=== PATIENT | female | born 1990 | race Caucasian/White ===

== ENCOUNTER → 2016-09-27 | Outpatient (REF) | payer OTHER ==
[~2016-09-27] MED LIST: ESCI10TA2 PO; HYDR25T PO; TRAZO50TA PO; [UNRECOGNIZED DRUG - OTHER] TOP
[2016-09-27 19:36] LABS: BASO % 0.3 % (0.0-1.0); EOS % 0.5 % (0.0-3.0); LARGE UNSTAINED CELL # 0.1 K/mm3 (0.0-0.4); LARGE UNSTAINED CELL % 1.1 % (0.0-4.0); LYMPH # 2.4 K/mm3 (1.5-6.5); LYMPH % 34.7 % (24.0-44.0); MEAN CORPUSCULAR HEMOGLOBIN 35.4 pg (27.0-33.0); MEAN CORPUSCULAR HGB CONC 35.3 g/dl (32.0-36.5); MEAN CORPUSCULAR VOLUME 100.2 fl (80.0-96.0); MONO # 0.2 K/mm3 (0.0-0.8); NEUTROPHILS # 4.2 K/mm3 (1.8-7.7); NEUTROPHILS % 60.3 % (36.0-66.0); PLATELET COUNT, AUTOMATED 191 k/mm3 (150-450); WHITE BLOOD COUNT 6.9 K/mm3 (4.0-10.0)
== END ==
LOC: M SFHCPLAZ 14:12
PROVIDERS: ATTEND Physician Assistant Medical
DX: M79.672 Pain in left foot (principal)

== ENCOUNTER → 2016-09-27 | Outpatient (CLI) | payer OTHER ==
--- NOTE | 2016-09-27 13:11 | REP ---
LEFT FOOT, FOUR VIEWS: There is no evidence of an acute fracture, dislocation or intrinsic bone disease. IMPRESSION: No fracture or dislocation. Signed by Danny Diggs MD 09/27/2016 04:50 P
== END ==
LOC: M RAD 11:13
PROVIDERS: ATTEND Physician Assistant Medical
DX: M79.672 Pain in left foot (principal)

== ENCOUNTER → 2016-11-22 | Outpatient (CLI) | payer OTHER ==
--- NOTE | 2016-11-26 12:12 | SLEEPCENT ---
DATE OF PROCEDURE: 11/22/2016 ORDERED BY: HARSHA Collins Nocturnal polysomnography was performed due to concern for the obstructive sleep apnea syndrome in this patient with a history of nonrestorative sleep and irregular breathing pattern. 8 hours and 34 minutes of data were reviewed. There were 422 minutes of sleep identified. Sleep latency was short at 9 minutes. Rapid eye movement (REM) latency was short at 66 minutes. Sleep architecture was fair with some fragmentation, but 4 REM periods were identified. The patient's EKG showed a sinus rhythm with an average heart rate of 75 beats per minute. Rate variability was seen surrounding respiratory events. Rate ranged 60-100 beats per minute. EEG showed essentially normal waveforms for awake and sleep stages. There were only 26 respiratory events identified of 10 seconds in duration or greater for an apnea hypopnea index of 3.7. The events seen were more exclusive to stage REM. No significant association with body posture was identified. There was some snoring noted over the course of the study. Arousals from respiratory events in total occurred only 2.3 times per hour. There was some minor limb activity. Limb movement arousal index of 3.7. Oxygen saturations remained 90% plus throughout the test. IMPRESSION: Normal nocturnal polysomnography with snoring.
== END ==
LOC: M SLEEP 19:57
PROVIDERS: ATTEND Nurse Practitioner Adult Health
DX: G47.30 Sleep apnea, unspecified (principal)

== ENCOUNTER → 2016-12-26 | Outpatient (REF) | payer OTHER ==
[~2016-12-26] MED LIST changes: +CLEO300C2 PO; +FAMO1TAB25 PO; +FAMO40TA3 PO; +HYDR-3363 PO; -HYDR25T PO; +PHEN1SUP7 PO
[2016-12-26 11:56] LABS: BASO % 0.4 % (0.0-1.0); EOS # 0.1 K/mm3 (0.0-0.50); EOS % 1.9 % (0.0-3.0); LARGE UNSTAINED CELL # 0.1 K/mm3 (0.0-0.4); LARGE UNSTAINED CELL % 1.5 % (0.0-4.0); LYMPH # 1.9 K/mm3 (1.5-6.5); LYMPH % 33.9 % (24.0-44.0); MEAN CORPUSCULAR HEMOGLOBIN 34.2 pg (27.0-33.0); MEAN CORPUSCULAR HGB CONC 35.4 g/dl (32.0-36.5); MEAN CORPUSCULAR VOLUME 96.5 fl (80.0-96.0); MONO # 0.2 K/mm3 (0.0-0.8); MONO % 4.2 % (0.0-5.0); NEUTROPHILS # 3.1 K/mm3 (1.8-7.7); NEUTROPHILS % 58.1 % (36.0-66.0); PLATELET COUNT, AUTOMATED 153 k/mm3 (150-450); RED CELL DISTRIBUTION WIDTH 12.7 % (11.5-14.5); WHITE BLOOD COUNT 5.4 K/mm3 (4.0-10.0)
[2016-12-26 12:13] LABS: ANION GAP 10 MEQ/L (8-16); BLOOD UREA NITROGEN 10 MG/DL (7-18); CALCIUM LEVEL 8.9 MG/DL (8.5-10.1); CARBON DIOXIDE LEVEL 30 MEQ/L (21-32); CHLORIDE LEVEL 106 MEQ/L (98-107); CREATININE FOR GFR 0.56 MG/DL (0.55-1.02); GLOMERULAR FILTRATION RATE > 60.0 (>60); GLUCOSE, FASTING 73 MG/DL (70-105); POTASSIUM SERUM 3.5 MEQ/L (3.5-5.1); SODIUM LEVEL 146 MEQ/L (136-145)
== END ==
LOC: M SFHCPLAZ 09:26
PROVIDERS: ATTEND Physician Assistant Medical
DX: E66.9 Obesity, unspecified (principal)

== ENCOUNTER → 2016-12-27 | Outpatient (CLI) | payer OTHER ==
[2016-12-27 20:11] LABS: ALBUMIN 3.7 GM/DL (3.2-5.2); ALBUMIN/GLOBULIN RATIO 1.48 (1.00-1.93); ALKALINE PHOSPHATASE 65 U/L (45-117); ALT/SGPT 26 U/L (12-78); ANION GAP 9 MEQ/L (8-16); AST/SGOT 13 U/L (15-37); BILIRUBIN,TOTAL 0.4 MG/DL (0.2-1.0); BLOOD UREA NITROGEN 9 MG/DL (7-18); CALCIUM LEVEL 8.8 MG/DL (8.5-10.1); CARBON DIOXIDE LEVEL 29 MEQ/L (21-32); CHLORIDE LEVEL 100 MEQ/L (98-107); CREATININE FOR GFR 0.63 MG/DL (0.55-1.02); FERRITIN 154 NG/ML (8-252); GLOMERULAR FILTRATION RATE > 60.0 (>60); GLUCOSE, FASTING 69 MG/DL (70-105); MAGNESIUM LEVEL 2.3 MG/DL (1.8-2.4); PERCENT SATURATION 54.7 % (13.2-37.4); PHOSPHORUS LEVEL 3.4 MG/DL (2.5-4.9); POTASSIUM SERUM 3.4 MEQ/L (3.5-5.1); SODIUM LEVEL 138 MEQ/L (136-145); TOTAL IRON BINDING CAPACITY 192 UG/DL (250-450); TOTAL PROTEIN 6.2 GM/DL (6.4-8.2)
[2016-12-27 20:14] LABS: BASO % 0.4 % (0.0-1.0); EOS # 0.1 K/mm3 (0.0-0.50); EOS % 1.2 % (0.0-3.0); LARGE UNSTAINED CELL # 0.1 K/mm3 (0.0-0.4); LYMPH # 1.8 K/mm3 (1.5-6.5); LYMPH % 27.8 % (24.0-44.0); MEAN CORPUSCULAR HEMOGLOBIN 33.2 pg (27.0-33.0); MEAN CORPUSCULAR HGB CONC 34.3 g/dl (32.0-36.5); MEAN CORPUSCULAR VOLUME 96.7 fl (80.0-96.0); MONO # 0.2 K/mm3 (0.0-0.8); MONO % 3.7 % (0.0-5.0); NEUTROPHILS # 4.1 K/mm3 (1.8-7.7); NEUTROPHILS % 65.9 % (36.0-66.0); PLATELET COUNT, AUTOMATED 161 k/mm3 (150-450); RED CELL DISTRIBUTION WIDTH 12.9 % (11.5-14.5); WHITE BLOOD COUNT 6.2 K/mm3 (4.0-10.0)
[2016-12-27 20:34] LABS: VITAMIN B12 LEVEL > 2000 PG/ML (247-911)
[2016-12-28 10:56] LABS: PRETREATED FOLATE FOR RBCFOL 9.6 NG/ML
== END ==
LOC: M WUC 17:23
PROVIDERS: ATTEND Surgery
DX: K91.2 Postsurgical malabsorption, not elsewhere classified (principal); Z98.84 Bariatric surgery status

== ENCOUNTER 2016-12-28 10:35 | Emergency (ER) | payer OTHER ==
[~2016-12-28] VITALS: Ht 157.5 cm; Wt 91.4 kg
[~2016-12-28 10:35] MED LIST changes: -CLEO300C2 PO; -FAMO1TAB25 PO; -FAMO40TA3 PO; -PHEN1SUP7 PO
[2016-12-28] MEDS ORDERED: FAMO1TAB25 PO (10:58)
[2016-12-28] MEDS ORDERED: FAMO40TA3 PO (10:58)
[2016-12-28] MEDS ORDERED: PROMETHAZINE INJ 25 MG/ML VIAL (J2550) IV ONE (11:15)
[2016-12-28] MEDS ORDERED: NS 1,000 ML IV ONE (11:15)
[2016-12-28] MEDS ORDERED: CLEO300C2 PO (12:58)
[2016-12-28] MEDS ORDERED: PHEN1SUP7 PO (12:59)
[2016-12-28 13:05] VITALS: BP 111/61
== END 2016-12-28 13:14 | disposition home or self-care (01) ==
LOC: M ED 10:35
DX: R11.2 Nausea with vomiting, unspecified (principal); E86.0 Dehydration; J02.0 Streptococcal pharyngitis; Z98.84 Bariatric surgery status

== ENCOUNTER → 2017-06-05 | Outpatient (CLI) | payer OTHER ==
[2017-06-05 16:27] LABS: BASO % 0.4 % (0.0-1.0); EOS % 0.4 % (0.0-3.0); HEMATOCRIT 38.8 % (36.0-47.0); HEMOGLOBIN 13.3 g/dl (12.0-16.0); IMMATURE GRANULOCYTE % 0.2 % (0-0); LYMPH # 1.4 10^3/uL (1.5-6.5); LYMPH % 28.5 % (24.0-44.0); MEAN CORPUSCULAR HGB CONC 34.3 g/dl (32.0-36.5); MEAN CORPUSCULAR VOLUME 99.2 fl (80.0-96.0); MONO # 0.3 10^3/uL (0.0-0.8); MONO % 6.2 % (0.0-5.0); NEUTROPHILS # 3.2 10^3/uL (1.8-7.7); NEUTROPHILS % 64.3 % (36.0-66.0); PLATELET COUNT, AUTOMATED 174 10^3/uL (150-450); RED BLOOD COUNT 3.91 10^6/uL (4.00-5.40); RED CELL DISTRIBUTION WIDTH 12.5 % (11.5-14.5)
[2017-06-05 16:29] LABS: HEMATOCRIT 38.8 % (36.0-47.0)
[2017-06-05 17:14] LABS: ESTIMATED AVERAGE GLUCOSE 77 MG/DL (60-110); HEMOGLOBIN A1c 4.3 %
[2017-06-05 17:16] LABS: TOTAL 25(OH) VITAMIN D 39.8 NG/ML (30.0-100.0); VITAMIN B12 LEVEL 466 PG/ML (247-911)
[2017-06-05 17:25] LABS: ALBUMIN 3.5 GM/DL (3.2-5.2); ALKALINE PHOSPHATASE 95 U/L (45-117); ALT/SGPT 25 U/L (12-78); ANION GAP 5 MEQ/L (8-16); AST/SGOT 17 U/L (7-37); BILIRUBIN,TOTAL 0.3 MG/DL (0.2-1.0); BLOOD UREA NITROGEN 12 MG/DL (7-18); CALCIUM LEVEL 8.3 MG/DL (8.5-10.1); CARBON DIOXIDE LEVEL 30 MEQ/L (21-32); CHLORIDE LEVEL 109 MEQ/L (98-107); CREATININE FOR GFR 0.64 MG/DL (0.55-1.02); FERRITIN 100 NG/ML (8-252); GLOMERULAR FILTRATION RATE > 60.0 (>60); GLUCOSE, FASTING 79 MG/DL (70-105); IRON (FE) 62 UG/DL (50-170); MAGNESIUM LEVEL 2.2 MG/DL (1.8-2.4); PERCENT SATURATION 27.1 % (13.2-45.0); PHOSPHORUS LEVEL 2.8 MG/DL (2.5-4.9); POTASSIUM SERUM 3.8 MEQ/L (3.5-5.1); SODIUM LEVEL 144 MEQ/L (136-145); TOTAL IRON BINDING CAPACITY 229 UG/DL (250-450); TOTAL PROTEIN 6.2 GM/DL (6.4-8.2)
[2017-06-07 11:47] LABS: PRETREATED FOLATE FOR RBCFOL 7.2 NG/ML; RBC FOLATE 389.7 NG/ML (280-791)
== END ==
LOC: M LAB 15:42
DX: K91.2 Postsurgical malabsorption, not elsewhere classified (principal)
CPT/HCPCS: 83550

== ENCOUNTER → 2017-10-24 | Outpatient (REF) | payer OTHER ==
[2017-10-24 21:57] LABS: CHLAMYDIA DNA AMPLIFICATION POSITIVE (NEGATIVE); GC DNA AMPLIFICATION NEGATIVE (NEGATIVE)
== END ==
LOC: M SFHCLERA 17:47
DX: R10.9 Unspecified abdominal pain (principal)

== ENCOUNTER → 2018-03-09 | Outpatient (REF) | payer OTHER | LOC: M SFHCLERA 13:33 | DX: R50.9 Fever, unspecified (principal) ==

== ENCOUNTER → 2018-03-09 | Outpatient (CLI) | payer OTHER | LOC: M LRY 13:40 | DX: R50.9 Fever, unspecified (principal); R05 Cough | CPT/HCPCS: 71046 ==

== ENCOUNTER → 2018-04-23 | Outpatient (CLI) | payer OTHER | LOC: M OUTALCOH 08:06 | DX: Z13.89 Encounter for screening for other disorder (principal); F10.20 Alcohol dependence, uncomplicated ==

== ENCOUNTER 2018-05-01 09:04 | Outpatient (RCR) | payer OTHER | END 2018-05-02 | LOC: M OUTALCOH 09:04 | DX: F10.20 Alcohol dependence, uncomplicated (principal) ==

== ENCOUNTER → 2018-06-02 | Outpatient (RCR) | payer OTHER ==
[~2018-06-02] MED LIST changes: +CLEO300C2 PO; +FAMO1TAB25 PO; +FAMO40TA3 PO; +PHEN1SUP7 PO
== END ==
LOC: M OUTALCOH 05-06 09:00
PROVIDERS: ATTEND Psychiatry & Neurology Psychiatry
DX: F10.20 Alcohol dependence, uncomplicated (principal)

== ENCOUNTER 2018-06-30 08:45 | Outpatient (RCR) | payer OTHER | END 2018-07-03 | LOC: M OUTALCOH 08:45 | PROVIDERS: ATTEND Psychiatry & Neurology Psychiatry | DX: F10.20 Alcohol dependence, uncomplicated (principal) ==

== ENCOUNTER 2018-07-23 13:00 | Outpatient (RCR) | payer OTHER | END 2018-07-31 | LOC: M OUTALCOH 13:00 | PROVIDERS: ATTEND Psychiatry & Neurology Psychiatry | DX: F10.20 Alcohol dependence, uncomplicated (principal) ==

== ENCOUNTER 2018-08-29 16:00 | Outpatient (RCR) | payer OTHER | END 2018-08-31 | LOC: M OUTALCOH 16:00 | PROVIDERS: ATTEND Psychiatry & Neurology Psychiatry | DX: F10.20 Alcohol dependence, uncomplicated (principal) ==

== ENCOUNTER 2018-09-25 08:00 | Outpatient (RCR) | payer OTHER | END 2018-09-30 | LOC: M OUTALCOH 08:00 | PROVIDERS: ATTEND Psychiatry & Neurology Psychiatry | DX: F10.20 Alcohol dependence, uncomplicated (principal) ==

== ENCOUNTER → 2018-09-30 | Outpatient (REF) | payer OTHER | LOC: M SFHCLERA 11:30 | PROVIDERS: ATTEND Physician Assistant | DX: J02.9 Acute pharyngitis, unspecified (principal) ==

== ENCOUNTER 2018-10-29 08:55 | Outpatient (RCR) | payer OTHER | END 2018-10-31 | LOC: M OUTALCOH 08:55 | PROVIDERS: ATTEND Psychiatry & Neurology Psychiatry | DX: F10.20 Alcohol dependence, uncomplicated (principal) ==

== ENCOUNTER 2018-11-27 16:00 | Outpatient (RCR) | payer OTHER ==
[~2018-11-27 16:00] MED LIST changes: +TRAZ1TAB10 PO; -TRAZO50TA PO
== END 2018-11-30 ==
LOC: M OUTALCOH 16:00
PROVIDERS: ATTEND Psychiatry & Neurology Psychiatry
DX: F10.20 Alcohol dependence, uncomplicated (principal)

== ENCOUNTER 2018-12-30 10:00 | Outpatient (RCR) | payer OTHER, SELFPAY | END 2018-12-31 | LOC: M OUTALCOH 10:00 | PROVIDERS: ATTEND Psychiatry & Neurology Psychiatry | DX: F10.20 Alcohol dependence, uncomplicated (principal) | CPT/HCPCS: 90834; H0050 ==

== ENCOUNTER 2019-01-28 08:00 | Outpatient (RCR) | payer OTHER | END 2019-01-31 | LOC: M OUTALCOH 08:00 | PROVIDERS: ATTEND Psychiatry & Neurology Psychiatry | DX: F10.20 Alcohol dependence, uncomplicated (principal) ==

== ENCOUNTER 2019-02-25 16:00 | Outpatient (RCR) | payer OTHER | END 2019-03-02 | LOC: M OUTALCOH 16:00 | PROVIDERS: ATTEND Psychiatry & Neurology Psychiatry | DX: F10.20 Alcohol dependence, uncomplicated (principal) ==

== ENCOUNTER 2019-03-27 13:00 | Outpatient (RCR) | payer OTHER | END 2019-04-02 | LOC: M OUTALCOH 13:00 | PROVIDERS: ATTEND Psychiatry & Neurology Psychiatry | DX: F10.20 Alcohol dependence, uncomplicated (principal) ==

== ENCOUNTER 2019-04-27 16:00 | Outpatient (RCR) | payer OTHER | END 2019-05-02 | LOC: M OUTALCOH 16:00 | PROVIDERS: ATTEND Psychiatry & Neurology Psychiatry | DX: F10.20 Alcohol dependence, uncomplicated (principal) ==

== ENCOUNTER → 2019-05-12 | Outpatient (CLI) | payer OTHER ==
[2019-05-12 17:07] LABS: BASO % 0.4 % (0.0-1.0); EOS % 0.4 % (0.0-3.0); HEMATOCRIT 39.2 % (36.0-47.0); HEMOGLOBIN 12.8 g/dl (12.0-15.5); LYMPH # 2.1 10^3/uL (1.5-5.0); LYMPH % 41.7 % (24.0-44.0); MEAN CORPUSCULAR HEMOGLOBIN 32.9 pg (27.0-33.0); MEAN CORPUSCULAR HGB CONC 32.7 g/dl (32.0-36.5); MEAN CORPUSCULAR VOLUME 100.8 fl (80.0-96.0); MONO # 0.3 10^3/uL (0.0-0.8); MONO % 5.1 % (0.0-5.0); NEUTROPHILS # 2.7 10^3/uL (1.5-8.5); NEUTROPHILS % 52.4 % (36.0-66.0); PLATELET COUNT, AUTOMATED 165 10^3/uL (150-450); RED BLOOD COUNT 3.89 10^6/uL (4.00-5.40); WHITE BLOOD COUNT 5.1 10^3/uL (4.0-10.0)
[2019-05-12 17:20] LABS: FREE T4 0.96 NG/DL (0.76-1.46); PROLACTIN 5.7 NG/ML
[2019-05-13 13:23] LABS: HEPATITIS B SURFACE ANTIGEN NEGATIVE (NEGATIVE)
[2019-05-13 13:25] LABS: HEPATITIS C VIRUS ABY INDEX 0.1 INDEX (<0.8); HIV 1&2 SCREEN CENTAUR NEGATIVE (NEGATIVE)
== END ==
LOC: M WUC 11:22
PROVIDERS: ATTEND Nurse Practitioner Women's Health
DX: Z11.3 Encounter for screening for infections with a predominantly sexual mode of transmission (principal); R53.83 Other fatigue; N64.4 Mastodynia

== ENCOUNTER 2019-06-01 13:59 | Outpatient (RCR) | payer OTHER | END 2019-06-02 | LOC: M OUTALCOH 13:59 | PROVIDERS: ATTEND Psychiatry & Neurology Psychiatry | DX: F10.20 Alcohol dependence, uncomplicated (principal) ==

== ENCOUNTER 2019-06-29 16:00 | Outpatient (RCR) | payer OTHER | END 2019-07-03 | LOC: M OUTALCOH 16:00 | PROVIDERS: ATTEND Psychiatry & Neurology Psychiatry | DX: F10.20 Alcohol dependence, uncomplicated (principal) ==

== ENCOUNTER 2019-07-31 09:03 | Outpatient (RCR) | payer OTHER | END 2019-08-01 | LOC: M OUTALCOH 09:03 | PROVIDERS: ATTEND Psychiatry & Neurology Addiction Medicine | DX: F10.20 Alcohol dependence, uncomplicated (principal) ==

== ENCOUNTER 2019-08-14 09:55 | Outpatient (RCR) | payer OTHER | END 2019-09-01 | LOC: M OUTALCOH 09:55 | PROVIDERS: ATTEND Psychiatry & Neurology Addiction Medicine | DX: F10.20 Alcohol dependence, uncomplicated (principal) ==

== ENCOUNTER 2019-09-10 13:47 | Outpatient (RCR) | payer OTHER | END 2019-10-01 | LOC: M OUTALCOH 13:47 | PROVIDERS: ATTEND Psychiatry & Neurology Addiction Medicine | DX: F10.20 Alcohol dependence, uncomplicated (principal) ==

== ENCOUNTER 2019-10-15 16:00 | Outpatient (RCR) | payer OTHER | END 2019-11-01 | LOC: M OUTALCOH 16:00 | PROVIDERS: ATTEND Psychiatry & Neurology Addiction Medicine | DX: F10.20 Alcohol dependence, uncomplicated (principal) ==

== ENCOUNTER → 2019-11-05 | Outpatient (CLI) | payer OTHER | LOC: M LABSMTC 10:10 | PROVIDERS: ATTEND Pediatrics | DX: Z03.818 Encounter for observation for suspected exposure to other biological agents ruled out (principal); Z11.59 Encounter for screening for other viral diseases ==

== ENCOUNTER 2019-11-19 15:31 | Outpatient (RCR) | payer OTHER | END 2019-12-01 | LOC: M OUTALCOH 15:31 | PROVIDERS: ATTEND Psychiatry & Neurology Addiction Medicine | DX: F10.20 Alcohol dependence, uncomplicated (principal) ==

== ENCOUNTER 2019-12-30 10:00 | Outpatient (RCR) | payer OTHER | END 2020-01-01 | LOC: M OUTALCOH 10:00 | PROVIDERS: ATTEND Psychiatry & Neurology Addiction Medicine | DX: F10.20 Alcohol dependence, uncomplicated (principal) ==

== ENCOUNTER 2020-02-04 11:30 | Outpatient (RCR) | payer OTHER | END 2020-03-02 | LOC: M OUTALCOH 11:30 | PROVIDERS: ATTEND Psychiatry & Neurology Addiction Medicine | DX: F10.20 Alcohol dependence, uncomplicated (principal) ==

== ENCOUNTER 2020-03-17 15:48 | Outpatient (RCR) | payer OTHER | END 2020-04-02 | LOC: M OUTALCOH 15:48 | PROVIDERS: ATTEND Psychiatry & Neurology Addiction Medicine | DX: F10.20 Alcohol dependence, uncomplicated (principal) ==

== ENCOUNTER 2020-04-22 14:27 | Outpatient (RCR) | payer OTHER | END 2020-05-02 | LOC: M OUTALCOH 14:27 | PROVIDERS: ATTEND Psychiatry & Neurology Addiction Medicine | DX: F10.20 Alcohol dependence, uncomplicated (principal) ==

== ENCOUNTER → 2020-05-31 | Outpatient (CLI) | payer OTHER ==
[2020-05-31 14:01] LABS: BASO % 0.4 % (0.0-1.0); EOS % 0.8 % (0.0-3.0); HEMATOCRIT 39.3 % (36.0-47.0); HEMOGLOBIN 12.7 g/dl (12.0-15.5); LYMPH # 1.7 10^3/uL (1.5-5.0); MEAN CORPUSCULAR HEMOGLOBIN 32.6 pg (27.0-33.0); MEAN CORPUSCULAR HGB CONC 32.3 g/dl (32.0-36.5); MEAN CORPUSCULAR VOLUME 100.8 fl (80.0-96.0); MONO # 0.3 10^3/uL (0.0-0.8); MONO % 5.9 % (0.0-5.0); NEUTROPHILS # 2.7 10^3/uL (1.5-8.5); NEUTROPHILS % 56.9 % (36.0-66.0); PLATELET COUNT, AUTOMATED 190 10^3/uL (150-450); WHITE BLOOD COUNT 4.7 10^3/uL (4.0-10.0)
== END ==
LOC: M PLALAB 11:02
PROVIDERS: ATTEND Obstetrics & Gynecology
DX: Z91.89 Other specified personal risk factors, not elsewhere classified (principal)

== ENCOUNTER → 2020-05-31 | Outpatient (REF) | payer OTHER ==
[2020-05-31 14:39] LABS: HEMOGLOBIN A1c 4.5 %
[2020-05-31 14:43] LABS: ALBUMIN 3.7 GM/DL (3.2-5.2); ALT/SGPT 25 U/L (12-78); BILIRUBIN,TOTAL 0.6 MG/DL (0.2-1.0); BLOOD UREA NITROGEN 12 MG/DL (7-18); CALCIUM LEVEL 8.6 MG/DL (8.5-10.1); CARBON DIOXIDE LEVEL 30 MEQ/L (21-32); CHLORIDE LEVEL 105 MEQ/L (98-107); CHOLESTEROL LEVEL 166 MG/DL (<200); CHOLESTEROL RISK RATIO 2.338 (<5); CREATININE FOR GFR 0.68 MG/DL (0.55-1.30); FERRITIN 49 NG/ML (8-252); FREE T4 1.18 NG/DL (0.76-1.46); GLOMERULAR FILTRATION RATE > 60.0 (>60); GLUCOSE, FASTING 77 MG/DL (70-100); HDL CHOLESTEROL 71 MG/DL (>40); IRON (FE) 113 UG/DL (50-170); LDL CHOLESTEROL 80 MG/DL (<100); MAGNESIUM LEVEL 2.3 MG/DL (1.8-2.4); NON-HDL-C 95 MG/DL; PHOSPHORUS LEVEL 2.9 MG/DL (2.5-4.9); POTASSIUM SERUM 4.5 MEQ/L (3.5-5.1); SODIUM LEVEL 140 MEQ/L (136-145); TOTAL PROTEIN 6.4 GM/DL (6.4-8.2); TRIGLYCERIDES LEVEL 74 MG/DL (<150)
[2020-05-31 14:44] LABS: TOTAL 25(OH) VITAMIN D 25.4 NG/ML (30.0-100.0); VITAMIN B12 LEVEL 334 PG/ML (247-911)
== END ==
LOC: M SFHCPLAZ 11:01
PROVIDERS: ATTEND Physician Assistant Medical
DX: Z98.890 Other specified postprocedural states (principal); E66.9 Obesity, unspecified; F41.9 Anxiety disorder, unspecified; Z13.220 Encounter for screening for lipoid disorders

== ENCOUNTER 2020-06-29 09:00 | Outpatient (RCR) | payer OTHER ==
[~2020-06-29 09:00] MED LIST changes: +ESCI10TA16 PO; -ESCI10TA2 PO
== END 2020-07-03 ==
LOC: M OUTALCOH 09:00
PROVIDERS: ATTEND Psychiatry & Neurology Psychiatry
DX: F10.20 Alcohol dependence, uncomplicated (principal)

== ENCOUNTER → 2020-07-14 | Outpatient (REF) | payer OTHER ==
[2020-07-14 10:41] LABS: BASO % 0.4 % (0.0-1.0); EOS % 0.8 % (0.0-3.0); HEMATOCRIT 35.5 % (36.0-47.0); HEMOGLOBIN 12.2 g/dl (12.0-15.5); LYMPH # 1.6 10^3/uL (1.5-5.0); LYMPH % 34.3 % (24.0-44.0); MEAN CORPUSCULAR HEMOGLOBIN 33.8 pg (27.0-33.0); MEAN CORPUSCULAR HGB CONC 34.4 g/dl (32.0-36.5); MEAN CORPUSCULAR VOLUME 98.3 fl (80.0-96.0); MONO # 0.2 10^3/uL (0.0-0.8); MONO % 4.4 % (0.0-5.0); NEUTROPHILS # 2.8 10^3/uL (1.5-8.5); NEUTROPHILS % 59.9 % (36.0-66.0); PLATELET COUNT, AUTOMATED 162 10^3/uL (150-450); RED BLOOD COUNT 3.61 10^6/uL (4.00-5.40); WHITE BLOOD COUNT 4.8 10^3/uL (4.0-10.0)
[2020-07-14 11:11] LABS: ALBUMIN 3.4 GM/DL (3.2-5.2); ALT/SGPT 23 U/L (12-78); BILIRUBIN,TOTAL 0.6 MG/DL (0.2-1.0); BLOOD UREA NITROGEN 13 MG/DL (7-18); CALCIUM LEVEL 8.2 MG/DL (8.5-10.1); CARBON DIOXIDE LEVEL 27 MEQ/L (21-32); CHLORIDE LEVEL 109 MEQ/L (98-107); CHOLESTEROL LEVEL 145 MG/DL (<200); CHOLESTEROL RISK RATIO 2.685 (<5); CREATININE FOR GFR 0.68 MG/DL (0.55-1.30); FERRITIN 35 NG/ML (8-252); FREE T4 0.96 NG/DL (0.76-1.46); GLOMERULAR FILTRATION RATE > 60.0 (>60); GLUCOSE, FASTING 75 MG/DL (70-100); HDL CHOLESTEROL 54 MG/DL (>40); IRON (FE) 151 UG/DL (50-170); LDL CHOLESTEROL 83 MG/DL (<100); NON-HDL-C 91 MG/DL; POTASSIUM SERUM 4.1 MEQ/L (3.5-5.1); SODIUM LEVEL 143 MEQ/L (136-145); TOTAL 25(OH) VITAMIN D 31.6 NG/ML (30.0-100.0); TOTAL PROTEIN 5.9 GM/DL (6.4-8.2); TRIGLYCERIDES LEVEL 40 MG/DL (<150); VITAMIN B12 LEVEL 325 PG/ML (247-911)
== END ==
LOC: M SFHCPLAZ 08:43
PROVIDERS: ATTEND Physician Assistant Medical
DX: J45.20 Mild intermittent asthma, uncomplicated (principal); Z13.220 Encounter for screening for lipoid disorders; F41.9 Anxiety disorder, unspecified; Z98.890 Other specified postprocedural states

== ENCOUNTER 2020-07-20 10:00 | Outpatient (RCR) | payer OTHER | END 2020-07-31 | LOC: M OUTALCOH 10:00 | PROVIDERS: ATTEND Psychiatry & Neurology Psychiatry | DX: F12.20 Cannabis dependence, uncomplicated (principal); F10.20 Alcohol dependence, uncomplicated; Z72.0 Tobacco use ==

== ENCOUNTER 2020-08-16 20:43 | Emergency (ER) | payer OTHER ==
[~2020-08-16] VITALS: Ht 157.5 cm; Wt 71.6 kg
[2020-08-16] MEDS ORDERED: LAMO100T3 PO (20:58)
[2020-08-16] MEDS ORDERED: ALBU8.5H INH (20:58)
[2020-08-16] MEDS ORDERED: TRAZ-252 PO (20:58)
[2020-08-16] MEDS ORDERED: BUPR150T5 PO (20:58)
[2020-08-16] MEDS ORDERED: FAMOTIDINE INJ 20MG/2ML VIAL (S0028 PER 1) IVP ONE (22:50)
[2020-08-16] MEDS ORDERED: PANTOPRAZOLE 40MG VIAL (C9113 PER 1) IV ONE (22:50)
[2020-08-16] MEDS ORDERED: ONDANSETRON 4MG/2ML VIAL IV ONE (22:50)
[2020-08-16] MEDS ORDERED: GI COCKTAIL 50ML BTL(HYOSCYAMINE/MAALOX/LIDOCAINE VISCOUS)(1:3:1) PO ONE (22:50)
[2020-08-16] MEDS ORDERED: NS 1,000 ML IV ONE (22:50)
[2020-08-16] MEDS ORDERED: SUCRALFATE 1 GM TAB PO ONE (22:50)
[2020-08-16 23:06] LABS: BASO % 0.4 % (0.0-1.0); EOS # 0.1 10^3/uL (0.0-0.5); HEMATOCRIT 33.7 % (36.0-47.0); HEMOGLOBIN 11.8 g/dl (12.0-15.5); LYMPH # 2.4 10^3/uL (1.5-5.0); LYMPH % 47.4 % (24.0-44.0); MEAN CORPUSCULAR HEMOGLOBIN 33.5 pg (27.0-33.0); MEAN CORPUSCULAR VOLUME 95.7 fl (80.0-96.0); MONO # 0.3 10^3/uL (0.0-0.8); MONO % 6.6 % (2.0-8.0); NEUTROPHILS # 2.2 10^3/uL (1.5-8.5); NEUTROPHILS % 44.4 % (36.0-66.0); PLATELET COUNT, AUTOMATED 162 10^3/uL (150-450); RED BLOOD COUNT 3.52 10^6/uL (4.00-5.40)
[2020-08-16] MEDS ORDERED: ISOVUE-370 76% 100ML VIAL As Ordered ONE (23:18)
[2020-08-16 23:43] LABS: ALBUMIN 3.9 GM/DL (3.2-5.2); BILIRUBIN,DIRECT 0.1 MG/DL (0.0-0.2); BILIRUBIN,TOTAL 0.2 MG/DL (0.2-1.0); TOTAL PROTEIN 6.5 GM/DL (6.4-8.2)
[2020-08-16] MEDS: GASTROGRAFIN SOLUTION 30ML PO SCH (23:45)
[2020-08-17] MEDS: GASTROGRAFIN SOLUTION 30ML PO SCH (00:18)
--- NOTE | 2020-08-17 01:38 | REPVR ---
PROCEDURE INFORMATION: Exam: CT Abdomen And Pelvis With Contrast Exam date and time: 08/16/2020 10:49 PM Age: 30 years old Clinical indication: Abdominal pain; Epigastric; Additional info: Gastric bypass 4 yrs ago, 4 days nvd, mid epigastric pain TECHNIQUE: Imaging protocol: Computed tomography of the abdomen and pelvis with contrast. Radiation optimization: All CT scans at this facility use at least one of these dose optimization techniques: automated exposure control; mA and/or kV adjustment per patient size (includes targeted exams where dose is matched to clinical indication); or iterative reconstruction. Contrast material: ISO; Contrast volume: 100 ml; Contrast route: INTRAVENOUS (IV); Other contrast: Oral, ggraphin, 600; COMPARISON: No relevant prior studies available. FINDINGS: Liver: Normal. No mass. Gallbladder and bile ducts: Normal. No calcified stones. No ductal dilation. Pancreas: Normal. No ductal dilation. Spleen: Normal. No splenomegaly. Adrenal glands: Normal. No mass. Kidneys and ureters: Normal. No hydronephrosis. Stomach and bowel: There has been gastric bypass with collapse of the bypassed stomach. A left mid abdominal Breanna-en-Y is noted. There is mild localized distention of the small bowel associated with the anastomosis which is likely physiologic for the anastomosis. Appendix: A normal appendix is seen. Intraperitoneal space: Unremarkable. No free air. No significant fluid collection. Vasculature: Unremarkable. No abdominal aortic aneurysm. Lymph nodes: Unremarkable. No enlarged lymph nodes. Urinary bladder: Unremarkable as visualized. Reproductive: There is an IUD in the uterus. Bones/joints: Facet arthropathy of the lower lumbar spine with mild anterolisthesis at L4-L5. Soft tissues: Unremarkable. IMPRESSION: 1. Status post gastric bypass. 2. IUD in the uterus. 3. Otherwise negative CT abdomen/pelvis. Electronically signed by: Ricardo Baker On 08/17/2020 01:38:12 AM
[2020-08-17 01:46] VITALS: BP 101/55
[2020-08-17] MEDS ORDERED: PEPC1TAB5 PO (02:01)
[2020-08-17] MEDS ORDERED: ONDA4TAB6 PO (02:01)
[2020-08-17] MEDS ORDERED: OMEP-218 PO (02:01)
[2020-08-17] MEDS ORDERED: CARA1TAB6 PO (02:01)
== END 2020-08-17 02:18 | disposition home or self-care (01) ==
LOC: M ED 20:43
DX: R10.13 Epigastric pain (principal); R11.2 Nausea with vomiting, unspecified; R51.9 Headache, unspecified; J45.909 Unspecified asthma, uncomplicated; Z98.84 Bariatric surgery status; Z97.5 Presence of (intrauterine) contraceptive device; Z88.0 Allergy status to penicillin; Z88.2 Allergy status to sulfonamides; Z88.8 Allergy status to other drugs, medicaments and biological substances; Z91.040 Latex allergy status
CPT/HCPCS: 74177; 80047; 80076; 81001; 83690; 85025; 87086; 96361; 96374; 96375; 99284; C9113; J2405; Q9963; Q9967

== ENCOUNTER 2020-08-29 13:00 | Outpatient (RCR) | payer OTHER ==
[~2020-08-29 13:00] MED LIST changes: +ALBU8.5H INH; +BUPR150T5 PO; +CARA1TAB6 PO; +LAMO100T3 PO; +OMEP-218 PO; +ONDA4TAB6 PO; +PEPC1TAB5 PO; +TRAZ-252 PO
== END 2020-08-31 ==
LOC: M OUTALCOH 13:00
PROVIDERS: ATTEND Psychiatry & Neurology Psychiatry
DX: F10.20 Alcohol dependence, uncomplicated (principal); Z72.0 Tobacco use

== ENCOUNTER → 2020-09-30 | Outpatient (RCR) | payer OTHER | LOC: M OUTALCOH 09-09 09:00 | PROVIDERS: ATTEND Psychiatry & Neurology Psychiatry | DX: F10.20 Alcohol dependence, uncomplicated (principal); Z72.0 Tobacco use ==

== ENCOUNTER 2020-10-27 10:59 | Outpatient (RCR) | payer OTHER | END 2020-10-31 | LOC: M OUTALCOH 10:59 | PROVIDERS: ATTEND Psychiatry & Neurology Psychiatry | DX: F10.20 Alcohol dependence, uncomplicated (principal); Z72.0 Tobacco use ==

== ENCOUNTER 2020-11-26 14:01 | Inpatient (IN) | payer OTHER ==
[~2020-11-26] VITALS: Ht 157.5 cm; Wt 61.6 kg
[2020-11-26] VITALS (10 sets, daily range): BP systolic 93–104; BP diastolic 55–60
[~2020-11-26 14:01] MED LIST changes: +FAMO10TA50 PO; -FAMO1TAB25 PO
[2020-11-26 15:29] LABS: BASO % 0.3 % (0.0-1.0); EOS % 0.3 % (0.0-3.0); HEMATOCRIT 21.4 % (36.0-47.0); HEMOGLOBIN 7.2 g/dl (12.0-15.5); LYMPH # 2.2 10^3/uL (1.5-5.0); LYMPH % 29.7 % (24.0-44.0); MEAN CORPUSCULAR HEMOGLOBIN 33.3 pg (27.0-33.0); MEAN CORPUSCULAR HGB CONC 33.6 g/dl (32.0-36.5); MEAN CORPUSCULAR VOLUME 99.1 fl (80.0-96.0); MONO # 0.4 10^3/uL (0.0-0.8); MONO % 5.6 % (2.0-8.0); NEUTROPHILS # 4.8 10^3/uL (1.5-8.5); NEUTROPHILS % 63.8 % (36.0-66.0); PLATELET COUNT, AUTOMATED 177 10^3/uL (150-450); RED BLOOD COUNT 2.16 10^6/uL (4.00-5.40); WHITE BLOOD COUNT 7.5 10^3/uL (4.0-10.0)
[2020-11-26 16:01] LABS: BLOOD UREA NITROGEN 21 MG/DL (7-18); CALCIUM LEVEL 7.9 MG/DL (8.5-10.1); CARBON DIOXIDE LEVEL 29 MEQ/L (21-32); CHLORIDE LEVEL 106 MEQ/L (98-107); CREATININE FOR GFR 0.43 MG/DL (0.55-1.30); GLOMERULAR FILTRATION RATE > 60.0 (>60); GLUCOSE, FASTING 73 MG/DL (70-100); POTASSIUM SERUM 4.9 MEQ/L (3.5-5.1); SODIUM LEVEL 134 MEQ/L (136-145)
[2020-11-26] MEDS ORDERED: PANTOPRAZOLE 40MG VIAL (C9113 PER 1) IV ONE (16:15)
[2020-11-26] MEDS ORDERED: DEXTROSE 50% 50 ML SYRINGE IV PRN (16:20)
[2020-11-26] MEDS ORDERED: GLUCAGON INJ 1MG VIAL SC PRN (16:20)
[2020-11-26] MEDS ORDERED: GLUCOSE 4GM CHEW TABLET PO PRN (16:20)
[2020-11-26] MEDS ORDERED: OMEP-221 PO (16:28)
[2020-11-26] MEDS ORDERED: FLUTISP (16:28)
[2020-11-26] MEDS ORDERED: AZIT-12 PO (16:28)
[2020-11-26] MEDS ORDERED: LEXA1TAB PO (16:28)
[2020-11-26] MEDS ORDERED: PRED20TA PO (16:28)
[2020-11-26] MEDS ORDERED: ALBUTEROL 90 MCG/ACT 8GM HFA INHALER INH PRN (17:05)
[2020-11-26] MEDS ORDERED: FLUTICASONE PROP 0.05% NASAL SPRAY 16 GM (FLONASE) NARES PRN (17:05)
[2020-11-26 17:40] LABS: INR 1.03; PROTHROMBIN TIME 13.7 SECONDS (12.5-14.3)
[2020-11-26] MEDS: PANTOPRAZOLE SODIUM 40 MG in D5W 50 ML IV SCH ×2 (17:45→20:58)
[2020-11-26 17:49] LABS: PERCENT SATURATION 26.5 % (13.2-45.0)
--- NOTE | 2020-11-26 18:02 | HPEPDOC ---
[facility] Medical History & Physical Date of Admission Nov 26, 2020 Date of Service: Nov 26, 2020 History and Physical a/p: 30 F w left monique-en-y gastric bypass 2016 s/p asa and ibuprofen while on vacation in [place], w c/o fatigue, sob, lightheadedness, epigastric discomfort like a "hot poker," treated by urgent care on returning to [facility] for Asthma exacerbation, found to be anemic in ER. heme +stool. hgb7. acute symptomatic anemia acute blood loss anemia suspected UGIBleed from possible anastamotic ulcer from left monique en y gastric bypass h/o asthma anxiety depression ptsd prior etoh abuse prior cig abuse current recreational marijuana use plan: npo, ivf, protonix iv gtt, carafate, resume po meds w sips of water, surgical consult for egd. compression stockings. avoid nsaids. hypoglycemic protocol. dc in 2-3 days. dictated job #[id number] Vital Signs Vital Signs Date Time Temp Pulse Resp B/P (MAP) Pulse Ox O2 Delivery O2 Flow Rate FiO2 11/26/20 15:28 11/26/20 14:02 97.7 87 18 100 Room Air Laboratory Data Labs 24H Laboratory Tests 2 11/26/20 15:19: Immature Granulocyte % (Auto) 0.3, Neutrophils (%) (Auto) 63.8, Lymphocytes (%) (Auto) 29.7, Monocytes (%) (Auto) 5.6, Eosinophils (%) (Auto) 0.3, Basophils (%) (Auto) 0.3, Neutrophils # (Auto) 4.8, Lymphocytes # (Auto) 2.2, Monocytes # (Auto) 0.4, Eosinophils # (Auto) 0.0, Basophils # (Auto) 0.0, Reticulocyte # (auto) 55.2, Nucleated Red Blood Cells % (auto) 0.0, Differential Slide Review Report, Peripheral Blood Smear Path Consult PERIPHERAL SMEAR, Percent Reticulocyte Count 2.5H, Reticulocyte Hemoglobin Equivalent 42.6H, Anion Gap , Glomerular Filtration Rate > 60.0, Calcium Level 7.9L, Iron Level 72, Total Iron Binding Capacity 272, Transferrin % Saturation 26.5, Ferritin 43 11/26/20 15:24: POC Beta HCG, Quantitative < 5.0 11/26/20 17:17: Prothrombin Time 13.7, Prothromb Time International Ratio 1.03, Activated Partial Thromboplast Time 33.0 11/26/20 17:44: CBC/BMP Laboratory Tests 11/26/20 15:19 Home Medications Scheduled Azithromycin (Azithromycin) 250 Mg Tablet, 250 MG PO QHS TAKE 500MG ON FIRST DAY Bupropion Hcl (Bupropion HCl Sr) 150 Mg Tab.sr.12h, 150 MG PO DAILY Escitalopram Oxalate (Lexapro) 10 Mg Tablet, 10 MG PO QHS Lamotrigine (Lamotrigine) 100 Mg Tablet, 100 MG PO BID Omeprazole (Omeprazole) 40 Mg Capsule.dr, 40 MG PO DAILY Prednisone (Prednisone) 20 Mg Tablet, 20 MG PO QHS Trazodone HCl (Trazodone HCl) 50 Mg Tablet, 50 MG PO QHS Scheduled PRN Albuterol Sulfate (Albuterol Sulfate Hfa) 8.5 Gm Hfa.aer.ad, 2 PUFFS INH QID PRN for SOB/WHEEZING Fluticasone Propionate (Fluticasone Propionate) 16 Gm Maybee.susp, 1 SPRAY NARES BID PRN for NASAL CONGESTION Allergies Coded Allergies: Penicillins (Verified Allergy, Unknown, 08/16/20) Sulfa (Sulfonamide Antibiotics) (Verified Allergy, Unknown, 08/16/20) latex (Verified Allergy, Unknown, 08/16/20) loracarbef (Verified Allergy, Unknown, 08/16/20) A-FIB/CHADSVASC A-FIB History Current/History of A-Fib/PAF?: No Current PO Anticoag Therapy: No Age/Risk Factor Scoring CHADSVASC: CHADSVASC Response (Comments) Value Age Risk Factor Age < 65 years old 0 Gender Risk Factor Female 1 Hx of CHF No 0 Hx of HTN No 0 Hx of Stroke/TIA/or VTE No 0 Hx of Diabetes No 0 Hx of Vascular Disease No 0 Total 1 Treatment Treatment ordered: NONE MYLA BEST MD Nov 26, 2020 17:56
[2020-11-26 18:36] LABS: RSV AMPLIFICATION NEGATIVE (NEGATIVE)
[2020-11-26] MEDS: SUCRALFATE SUSP 1GM/10ML UD PO SCH ×2 (19:37→23:29)
[2020-11-26] MEDS: lamoTRIgine 100MG TAB PO SCH (20:02)
--- NOTE | 2020-11-26 20:52 | ECGEPIP ---
[facility] - ED Test Date: 2020-11-26 Pat Name: LALA MEEK Department: Room: - Gender: Female Power [employer]ke [employer]: MIGUEL A : 1990 Requested By: Gabriel Lancaster Order Number: [id number] Reading MD: Mady Hughes Measurements Intervals [place] Rate: 77 P: 76 VA: 146 QRS: 79 QRSD: 88 T: 59 QT: 400 QTc: 452 Interpretive Statements Normal sinus rhythm similar 03/23/16 Electronically Signed on 11-26-2020 20:52:43 EDT by Mady Hughes
[2020-11-26] MEDS ORDERED: ESCITALOPRAM OXALATE 10 MG TAB (LEXAPRO) PO SCH (21:00)
[2020-11-26] MEDS ORDERED: AZITHROMYCIN 250MG TABLET PO SCH (21:00)
[2020-11-26] MEDS ORDERED: predniSONE 20 MG TAB PO SCH (21:00)
[2020-11-26] MEDS ORDERED: traZODone 50 MG TAB PO SCH (21:00)
[2020-11-26] MEDS: D5W/0.45% SODIUM CHLORIDE 1,000 ML IV SCH (23:29)
[2020-11-27 00:19] LABS: HEMATOCRIT 28.2 % (36.0-47.0)
[2020-11-27 00:20] LABS: HEMOGLOBIN 9.6 g/dl (12.0-15.5)
[2020-11-27 00:27] VITALS: BP 90/50
[2020-11-27] MEDS ORDERED: NS 500 ML IV ONE (01:00)
[2020-11-27] MEDS: PANTOPRAZOLE SODIUM 40 MG in D5W 50 ML IV SCH ×2 (01:56→06:40)
[2020-11-27 02:47] VITALS: BP 94/60
[2020-11-27 06:00] VITALS: BP 92/60
[2020-11-27] MEDS: SUCRALFATE SUSP 1GM/10ML UD PO SCH ×2 (06:40→11:57)
[2020-11-27 06:52] LABS: BASO % 0.2 % (0.0-1.0); HEMATOCRIT 29.2 % (36.0-47.0); HEMOGLOBIN 9.9 g/dl (12.0-15.5); LYMPH # 1.4 10^3/uL (1.5-5.0); LYMPH % 26.7 % (24.0-44.0); MEAN CORPUSCULAR HEMOGLOBIN 31.6 pg (27.0-33.0); MEAN CORPUSCULAR HGB CONC 33.9 g/dl (32.0-36.5); MEAN CORPUSCULAR VOLUME 93.3 fl (80.0-96.0); MONO # 0.2 10^3/uL (0.0-0.8); NEUTROPHILS # 3.8 10^3/uL (1.5-8.5); NEUTROPHILS % 69.7 % (36.0-66.0); PLATELET COUNT, AUTOMATED 145 10^3/uL (150-450); RED BLOOD COUNT 3.13 10^6/uL (4.00-5.40); WHITE BLOOD COUNT 5.4 10^3/uL (4.0-10.0)
--- NOTE | 2020-11-27 07:02 | HPE ---
HISTORY AND PHYSICAL DATE OF ADMISSION: 11/26/2020 CHIEF COMPLAINT: Dizzy, lightheaded, short of breath, very tired. HISTORY OF PRESENT ILLNESS: This is a 30-year-old female with a history of gastric bypass surgery in 2016, presented to the emergency room with black tarry stools for about 1/2 days while she was in [place] on vacation about a week ago. The patient has been having episodes of shortness of breath, not feeling well and feeling very tired. She initially got her second dose of Pfizer coronavirus vaccine and felt tired with a sore throat. She went to [facility] and was she given a short course of antibiotics before going on vacation. When she went on her vacation in [place], the patient had sinus issues, could not breathe well but thought it was because it was humid and 90 degrees. She had an episode of black tarry stools for about 1/2 day nonstop without nausea or vomiting but with low grade to temperatures without chills. The patient then resumed back to normal, was able to eat but has had decrease in appetite since. She has had no weight loss. She returned back to [facility] upon returning from vacation and was seen again for shortness of breath, given a short course of prednisone, azithromycin and bronchodilators for presumed asthma exacerbation. She comes to the emergency room today due to persistent symptoms, no falls at home. She was noted to have a hemoglobin of 7, hematocrit of 21.4, denies any bright red blood per rectum, hematemesis, coffee ground emesis and has had no prior episodes in the past. While on vacation, she did take one aspirin, one ibuprofen for discomfort. She otherwise denies any bright red blood. She has had episodes of pain in the epigastric and right upper quadrant regions, feels like a hot poker when it comes on and off. No other medications were taken. PAST MEDICAL HISTORY: 1. History of obesity and gastric bypass surgery. 2. Asthma. 3. Anxiety. 4. Depression. 5. depression. 6. PTSD. ALLERGIES: SULFA, PENICILLIN, LORABID, LATEX, CEFAZOLIN. PAST SURGICAL HISTORY: 1. Gastric bypass, 2017. 2. Left mid-abdominal Breanna-en-Y in 2017. 3. IUD. 4. Anterolisthesis of L4-L5. HOME MEDICATIONS: 1. Prednisone taper. 2. Albuterol as needed. 3. Prilosec 40 daily. 4. Azithromycin 250 daily. 5. Bupropion 150 daily. 6. 10 q.h.s. 7. Fluticasone, nares b.i.d. as needed. 8. Lamotrigine 100 b.i.d. 9. Trazodone 50 mg q.h.s. FAMILY HISTORY: Father alive, age 65, malignant neoplasm. Mother, age 51, malignant neoplasm. SOCIAL HISTORY: Previous smoker, quit smoking. Previous alcohol abuse, quit drinking. Occasionally uses marijuana. [employer]. FULL CODE. Single. REVIEW OF SYSTEMS: As per HPI, 12-point system otherwise negative. PHYSICAL EXAMINATION: VITAL SIGNS: Temperature 97.7, pulse 87, respiratory rate 18, blood pressure 118/57, 100% on room air. GENERAL: The patient is awake, alert and oriented to person, place and time, positive pallor, no cyanosis and use of respiratory accessory muscles. No respiratory distress. HEENT: Pupils equal, round, reactive to light and accommodation. Extraocular movements are intact. The patient is pale. No cyanosis. No JVD, thyromegaly, cervical lymphadenopathy. LUNGS: Clear to auscultation, no wheezing, rales or rhonchi. HEART: S1, S2, sinus rhythm. ABDOMEN: Soft, nontender, nondistended. Positive bowel sounds. EXTREMITIES: No cyanosis, clubbing or pitting edema. LABORATORY DATA: White count i7.5, hemoglobin 7.2, hematocrit 21, platelet count 177. Sodium 134, potassium 4.9, chloride 106, bicarb 29, BUN 21, creatinine 0.43, glucose of 73. Beta HCG of less than 5, INR 1.0. Coronavirus pending. ASSESSMENT AND PLAN: A 30-year-old female with history of gastric bypass surgery with a left mid-abdominal Breanna-en-Y in 2017, IUD, anterolisthesis of L4-L5, asthma, prior smoker and alcohol abuse, anxiety, depression, PTSD, presented to the emergency room with a few week history of shortness of breath, fatigue, dizziness and one day of black tarry stools while on vacation in [place] in the setting of aspirin and ibuprofen. The patient will be admitted as an inpatient with the following acute issues: 1. Acute symptomatic anemia. 2. Suspected upper GI bleed. 3. Acute blood loss anemia. 4. History of gastric bypass surgery and concurrent use of aspirin and ibuprofen recently. 5. History of asthma currently without exacerbation but on tapering doses of prednisone. 6. Anxiety, depression. 7. PTSD. PLAN: The patient will be kept NPO, hyperglycemic protocol, IV fluid. She will be given Protonix IV drip after an 80 mg IV bolus, continued on Carafate 1 gm q.6 hourly. General surgeon, Dr. Clayton has been consulted for EGD in the morning. Continue all other home medications, type and screen and transfuse RBCs until hemoglobin is improved and the symptomatic anemia resolves. Check IBD serology. INR, PT, PTT are all within normal limits. Avoid nonsteroidal anti-inflammatories, compression stockings for DVT prophylaxis and check coronavirus 19 screen due to planned EGD in the morning. MTDD
[2020-11-27 07:10] LABS: BLOOD UREA NITROGEN 13 MG/DL (7-18); CARBON DIOXIDE LEVEL 27 MEQ/L (21-32); CHLORIDE LEVEL 108 MEQ/L (98-107); CREATININE FOR GFR 0.44 MG/DL (0.55-1.30); GLOMERULAR FILTRATION RATE > 60.0 (>60); GLUCOSE, FASTING 122 MG/DL (70-100); POTASSIUM SERUM 3.8 MEQ/L (3.5-5.1); SODIUM LEVEL 139 MEQ/L (136-145)
[2020-11-27] MEDS ORDERED: fentaNYL 100 MCG/2 ML INJECTION (J3010) As Ordered ONE (07:43)
[2020-11-27] MEDS ORDERED: ONDANSETRON 4MG/2ML VIAL As Ordered ONE (07:44)
[2020-11-27] MEDS ORDERED: LIDOCAINE 2% 100MG/5ML SDV (FOR ANES.) As Ordered ONE (07:44)
[2020-11-27] MEDS ORDERED: propofoL 200 MG/20 ML VIAL As Ordered ONE (07:44)
[2020-11-27] MEDS ORDERED: buPROPion **SR TABLET** (ZYBAN) 150MG PO SCH (09:00)
[2020-11-27] MEDS: D5W/0.45% SODIUM CHLORIDE 1,000 ML IV SCH (09:02)
[2020-11-27] MEDS ORDERED: IPRATROPIUM 0.5MG/ALBUTEROL 2.5MG INH SOL UD 3ML (DUONEB) As Ordered ONE ×2 (10:45→10:49)
[2020-11-27] MEDS ORDERED: ALBUTEROL SULFATE 2.5 MG/0.5 ML INH NEB SOLN INH ONE (10:55)
[2020-11-27] MEDS ORDERED: LR 1,000 ML IV SCH (10:55)
[2020-11-27] MEDS ORDERED: ONDANSETRON 4MG/2ML VIAL IV PRN (10:55)
--- NOTE | 2020-11-27 11:09 | ROOR ---
Patient Name: Debbie Caro Procedure Date: 11/27/2020 9:27 AM Date of : 1990 Age: 30 Room: [facility] Gender: Female Note Status: Finalized Procedure: Upper GI endoscopy Indications: Epigastric abdominal pain, Iron deficiency anemia secondary to chronic blood loss Providers: Kevin Clayton MD Referring MD: 2. Inpatient 2. Inpatient Requesting Provider: Medicines: Monitored Anesthesia Care Complications: No immediate complications. Procedure: Pre-Anesthesia Assessment: - Prior to the procedure, a History and Physical was performed, and patient medications and allergies were reviewed. The patient is competent. The risks and benefits of the procedure and the sedation options and risks were discussed with the patient. All questions were answered and informed consent was obtained. Patient identification and proposed procedure were verified by the physician, the nurse and the rn labor and delivery in the endoscopy suite. Mental Status Examination: alert and oriented. Airway Examination: normal oropharyngeal airway and neck mobility. Respiratory Examination: clear to auscultation. CV Examination: normal. Prophylactic Antibiotics: The patient does not require prophylactic antibiotics. Prior Anticoagulants: The patient has taken no previous anticoagulant or antiplatelet agents. ASA Grade Assessment: II - A patient with mild systemic disease. After reviewing the risks and benefits, the patient was deemed in satisfactory condition to undergo the procedure. The anesthesia plan was to use monitored anesthesia care (MAC). Immediately prior to administration of medications, the patient was re-assessed for adequacy to receive sedatives. The heart rate, respiratory rate, oxygen saturations, blood pressure, adequacy of pulmonary ventilation, and response to care were monitored throughout the procedure. The physical status of the patient was re-assessed after the procedure. The Endoscope was introduced through the mouth, and advanced to the efferent jejunal loop. The upper GI endoscopy was somewhat difficult due to post-surgical anatomy. The patient tolerated the procedure well. Findings: There is no endoscopic evidence of areas of erosion, esophagitis or inflammation in the entire esophagus. A small hiatal hernia was present. Evidence of a gastric bypass was found. A gastric pouch with a small size was found. The gastrojejunal anastomosis was small (mild stenosis) though I was able to navigate through it. characterized by edema, friable mucosa at the posterior end, with mild contact bleeding. [Traversed]. [Pouch to Jejunum Length ] [Mbpcx-pu-Fodbuhu Description]. [Jejunojejunal Description]. [Rgkz-pr-Qivtnou Examined?] [Quxy-wc-Cuqxfgf Length] [Sgkz-tg-Czrqilw Description]. I tried to place a clip at the posterior gj portion where the is localized inflammation and oozing on contact but could not torque the scope enough to clip it due to size of pouch and anastomosis. The examined jejunum was normal. Impression: - Small hiatal hernia. - Gastric bypass with a small-sized pouch. Gastrojejunal anastomosis characterized by edema, friable mucosa and mild stenosis. - Normal examined jejunum. - No specimens collected. Recommendation: - Admit the patient to hospital [facility] for ongoing care. - Resume regular diet. - Use Protonix (pantoprazole) 40 mg PO BID for 3 months. Procedure Code(s): --- Professional --- 02090, Esophagogastroduodenoscopy, flexible, transoral; diagnostic, including collection of specimen(s) by brushing or washing, when performed (separate procedure) Diagnosis Code(s): --- Professional --- K44.9, Diaphragmatic hernia without obstruction or gangrene Z98.84, Bariatric surgery status K95.89, Other complications of other bariatric procedure R10.13, Epigastric pain D50.0, Iron deficiency anemia secondary to blood loss (chronic) CPT copyright 2019 [employer]. All rights reserved. The codes documented in this report are preliminary and upon account executive [employer] review may be revised to meet current compliance requirements. Kevin Clayton MD Kevin Clayton MD 11/27/2020 11:09:21 AM Electronically signed by Kevin Clayton MD Number of Addenda: 0 Note Initiated On: 11/27/2020 9:27 AM Estimated Blood Loss: Estimated blood loss: none.
[2020-11-27 11:30] VITALS: BP 99/53
[2020-11-27 11:59] VITALS: BP 103/53
[2020-11-27 12:00] LABS: HEMATOCRIT 30.1 % (36.0-47.0); HEMOGLOBIN 10.2 g/dl (12.0-15.5)
[2020-11-27] MEDS ORDERED: SUCR1ORA PO (12:31)
[2020-11-27] MEDS ORDERED: PROT1TAB2 PO (12:31)
[2020-11-27] MEDS: lamoTRIgine 100MG TAB PO SCH (12:52)
--- NOTE | 2020-11-27 19:12 | IPN ---
PROGRESS NOTE DATE: 11/27/2020 SUBJECTIVE: The patient denies any recurrent black, tarry stools, hematemesis, coffee ground emesis. She denies any chest pain, pressure or tightness, lightheadedness, dizziness, shortness of breath. The patient is ambulating well from the bed to the bathroom without any issues. She does not have any epigastric abdominal pain this morning, n.p.o. after midnight for EGD today. She is afebrile. No complaints of cough despite IV fluids. No shortness of breath. OBJECTIVE: PHYSICAL EXAMINATION: VITAL SIGNS: Temperature 96.9, pulse 100, respiratory rate 16, blood pressure 103/53, oxygen saturation 100% on room air. GENERAL APPEARANCE: The patient is awake, alert, oriented to person, place and time, answering questions appropriately. LUNGS: Clear to auscultation. No rales, rhonchi or wheezes. HEART: S1, S2, sinus rhythm. ABDOMEN: Soft, nontender, nondistended. Positive bowel sounds. EXTREMITIES: No clubbing, cyanosis, or pitting edema. LABORATORY DATA: Reviewed. IMAGING STUDIES: Reviewed. MICROBIOLOGY: Reviewed. ASSESSMENT AND PLAN: A 30-year-old who complains of melena and symptomatic anemia with prior history of Breanna-en-Y procedure, gastric bypass in the setting of Aspirin and Ibuprofen use, admitted for upper GI bleed, acute blood loss anemia requiring blood transfusion, status post EGD showing a small hiatal hernia, gastric bypass with small size pouch, gastric jejunal anastomosis with edema and fibra mucosa and mild stenosis with recommendations for Protonix 40 twice daily for 3 months. IMPRESSION: 1. Acute blood loss anemia. 2. Acute upper GI bleed. 3. Symptomatic anemia - status post 2 units of RBC transfusion. 4. History of Breanna-en-Y/gastric bypass with recent use of Aspirin and Ibuprofen. 5. History of PTSD, anxiety and depression. 6. History of asthma with recent exacerbation treatment. PLAN: 1. The patient will be resumed on a regular diet - discharge home today if tolerates this well. 2. Protonix twice daily for 3 months. 3. Outpatient follow up with primary care physician and general surgeon as needed. [facility]
[2020-11-27] MEDS ORDERED: PANTOPRAZOLE 40MG TAB (PROTONIX) PO SCH (21:00)
[2020-11-30 17:09] LABS: Chitobioside Carbohydrat (ACCA 41 units (0-90); Laminaribioside Carbohyd (ALCA 17 units (0-60); Mannobioside Carbohydrat (AMCA 89 units (0-100); Saccharomyces cerevisiae IgG A 22 units (0-50); TRANSFERRIN 182 mg/dL (192-364)
== END 2020-11-27 13:25 | disposition home or self-care (01) | DRG 663 ==
LOC: M ED 14:01 → M ED INP 16:16 → M MSPAV 18:47
PROVIDERS: ADMIT General Practice; ATTEND General Practice
PROC: 30233N1 Transfusion of Nonautologous Red Blood Cells into Peripheral Vein, Percutaneous Approach (ICD-10-PCS; 2020-11-26)
PROC: 0DJ08ZZ Inspection of Upper Intestinal Tract, Via Natural or Artificial Opening Endoscopic (ICD-10-PCS; principal; 2020-11-27 09:00)
DX: D62 Acute posthemorrhagic anemia (principal); F32.9 Major depressive disorder, single episode, unspecified; K95.89 Other complications of other bariatric procedure; J45.909 Unspecified asthma, uncomplicated; F41.9 Anxiety disorder, unspecified; K92.1 Melena; F43.10 Post-traumatic stress disorder, unspecified; R10.13 Epigastric pain; K44.9 Diaphragmatic hernia without obstruction or gangrene; Z79.899 Other long term (current) drug therapy; Z88.0 Allergy status to penicillin; Z88.2 Allergy status to sulfonamides; Z91.040 Latex allergy status; Z87.891 Personal history of nicotine dependence; Z88.8 Allergy status to other drugs, medicaments and biological substances

== ENCOUNTER 2020-12-01 17:41 | Inpatient (IN) | payer OTHER ==
[~2020-12-01] VITALS: Ht 157.5 cm; Wt 61.4 kg
[~2020-12-01 17:41] MED LIST changes: +AZIT-12 PO; +FLUTISP; +LEXA1TAB PO; +OMEP-221 PO; +PRED20TA PO; +PROT1TAB2 PO; +SUCR1ORA PO
[2020-12-01] MEDS ORDERED: ZOFR4TAB16 PO (17:51)
--- NOTE | 2020-12-01 18:38 | REP ---
INDICATION: Syncope/near-syncope COMPARISON: 03/09/2018 TECHNIQUE: Portable AP view of the chest FINDINGS: The mediastinum and cardiac silhouette are stable and within normal limits for portable technique. The lung lester are clear without acute consolidation, effusion, or pneumothorax. Skeletal structures are intact. IMPRESSION: No acute cardiopulmonary process appreciated. <Electronically signed by Ed Gandhi > 12/01/20 [id number]
[2020-12-01 18:56] LABS: BASO % 0.2 % (0.0-1.0); EOS # 0.1 10^3/uL (0.0-0.5); EOS % 1.1 % (0.0-3.0); HEMATOCRIT 26.8 % (36.0-47.0); HEMOGLOBIN 8.9 g/dl (12.0-15.5); LYMPH # 1.6 10^3/uL (1.5-5.0); LYMPH % 37.4 % (24.0-44.0); MEAN CORPUSCULAR HEMOGLOBIN 32.7 pg (27.0-33.0); MEAN CORPUSCULAR HGB CONC 33.2 g/dl (32.0-36.5); MEAN CORPUSCULAR VOLUME 98.5 fl (80.0-96.0); MONO # 0.3 10^3/uL (0.0-0.8); NEUTROPHILS # 2.4 10^3/uL (1.5-8.5); NEUTROPHILS % 55.1 % (36.0-66.0); PLATELET COUNT, AUTOMATED 166 10^3/uL (150-450); RED BLOOD COUNT 2.72 10^6/uL (4.00-5.40); WHITE BLOOD COUNT 4.4 10^3/uL (4.0-10.0)
[2020-12-01 19:25] LABS: BLOOD UREA NITROGEN 11 MG/DL (7-18); CALCIUM LEVEL 7.8 MG/DL (8.5-10.1); CARBON DIOXIDE LEVEL 27 MEQ/L (21-32); CHLORIDE LEVEL 109 MEQ/L (98-107); CK-MB VALUE MASS 1.3 NG/ML (<3.6); CPK CREATINE PHOSPHOKINASE 59 U/L (26-192); CREATININE FOR GFR 0.56 MG/DL (0.55-1.30); GLOMERULAR FILTRATION RATE > 60.0 (>60); GLUCOSE, FASTING 72 MG/DL (70-100); SODIUM LEVEL 141 MEQ/L (136-145); THYROID STIMULATING HORMONE 0.891 uIU/ML (0.358-3.740); TROPONIN I < 0.02 NG/ML (< 0.10)
[2020-12-01] MEDS ORDERED: ACETAMINOPHEN 325 MG TAB PO ONE (19:30)
[2020-12-01] MEDS: GASTROGRAFIN SOLUTION 30ML PO SCH ×2 (19:40→20:12)
[2020-12-01] MEDS ORDERED: ISOVUE-370 76% 100ML VIAL As Ordered ONE (20:41)
--- NOTE | 2020-12-01 21:55 | REPVR ---
PROCEDURE INFORMATION: Exam: CT Abdomen And Pelvis With Contrast Exam date and time: 12/01/2020 9:11 PM Age: 30 years old Clinical indication: Abdominal pain; Localized; Upper; Additional info: Upper abdominal pain; HX of gastric bypass TECHNIQUE: Imaging protocol: Computed tomography of the abdomen and pelvis with contrast. Radiation optimization: All CT scans at this facility use at least one of these dose optimization techniques: automated exposure control; mA and/or kV adjustment per patient size (includes targeted exams where dose is matched to clinical indication); or iterative reconstruction. Contrast material: ISOVUE 370; Contrast volume: 100 ml; Contrast route: INTRAVENOUS (IV); COMPARISON: CT ABD/PEL W/IV ORAL CONTRAS 08/17/2020 12:56 AM FINDINGS: Liver: There is a 1.2 cm round enhancing vascular lesion upper aspect of the right lobe of the liver. This can faintly be seen on the examination 08/17/2020. To document that this is a benign finding recommend follow-up CT in additional 4 months for re-evaluation and to document stability over a longer course. The remainder of the liver has uniform enhancement. Gallbladder and bile ducts: Normal gallbladder. Normal common bile duct. Pancreas: Normal pancreas. Spleen: The spleen is normal in size. Adrenal glands: Normal adrenal glands. Kidneys and ureters: Normal kidneys. There is enhancement of the kidneys. There is no evidence of hydronephrosis. Stomach and bowel: A gastric bypass procedure is noted with multiple surgical clips identified. A small amount of contrast remains in the small gastric pouch. There is anastomosis of this gastric pouch to loops of jejunum left upper quadrant which opacified. The contrast is seen throughout the small bowel. The cecum is in the right lower quadrant and there is no evidence of inflammation in the region of the cecum or appendix. There is a prominent amount of solid stool throughout the colon consistent with severe constipation. Intraperitoneal space: There is a small amount of free fluid within the pelvis. Vasculature: There is enhancement of the aorta and appearing intact. Lymph nodes: There is no evidence of lymphadenopathy. Urinary bladder: Normal urinary bladder. Reproductive: There is an IUD within the uterus. Bones/joints: There is moderate broad-based disc protrusion L4-L5 and grade 1 spondylolisthesis. There is bilateral L4 neural foraminal narrowing but greater on the right. Soft tissues: There is subcutaneous edema which is new since August. IMPRESSION: 1. Since the examination of August there is been development of mild diffuse subcutaneous edema. 2. Postsurgical changes of gastric bypass and no evidence of obstruction. 3. 1.2 cm enhancing lesion of the right lobe of the liver. This is probably a benign vascular lesion but to exclude any possibility of pathology recommend follow-up CT in 4 months for re-evaluation and to document stability. 4. Moderate to severe constipation. Electronically signed by: Jeffery Millan On 12/01/2020 21:55:22 PM
--- NOTE | 2020-12-01 22:22 | REPVR ---
PROCEDURE INFORMATION: Exam: CT Head Without Contrast Exam date and time: 12/01/2020 9:11 PM Age: 30 years old Clinical indication: Pain; Headache not specified TECHNIQUE: Imaging protocol: Computed tomography of the head without contrast. Radiation optimization: All CT scans at this facility use at least one of these dose optimization techniques: automated exposure control; mA and/or kV adjustment per patient size (includes targeted exams where dose is matched to clinical indication); or iterative reconstruction. COMPARISON: CR MANDIBLE COMPLETE 01/29/2018 7:47 PM FINDINGS: Brain: Unremarkable. No hemorrhage or acute infarction. Unremarkable white matter. No midline shift or mass effect. Cerebral ventricles: No ventriculomegaly. Paranasal sinuses: Visualized sinuses are clear. Mastoid air cells: Mastoid air cells are clear. Bones/joints: Unremarkable. No acute fracture. Soft tissues: Unremarkable. IMPRESSION: No acute intracranial abnormality. Electronically signed by: Lowell Kenyon On 12/01/2020 22:21:55 PM
[2020-12-01] MEDS ORDERED: ACETAMINOPHEN TAB 650MG DOSE (2X325MG) PO PRN (23:30)
[2020-12-01] MEDS ORDERED: MAALOX 30 ML SUSP *UDC PO PRN (23:30)
[2020-12-01] MEDS ORDERED: MAGNESIUM CITRATE 300 ML BTL PO ONE (23:30)
[2020-12-01 23:33] LABS: RSV AMPLIFICATION NEGATIVE (NEGATIVE)
--- NOTE | 2020-12-01 23:57 | HPEPDOC ---
[facility] Medical History & Physical Date of Admission Dec 01, 2020 Date of Service: Dec 01, 2020 Primary Care Physician: Cherelle Ramirez Attending Physician: MAYO CHAPMAN MD MPH History and Physical CHIEF COMPLAINT: Weakness, dizziness, dark tarry stools and low blood pressure HISTORY OF PRESENT ILLNESS: Ms. Caro is a 30-year-old female who presented to the ER with complaints of weakness, dizziness, headache, dark tarry stools and low blood pressure. She was seen in her primary care provider's office yesterday with complaints of decreased blood pressure at home. She was reportedly treated with IV fluids and sent home. Her symptoms persisted today and she was advised to report to the ER for further evaluation. The patient has a history of gastric bypass and was admitted last Saturday with the same complaints. She was found to be symptomatically anemic and was transfused 2 units of PRBCs. She also had an EGD which showed friable mucosa, edema and mild stenosis at the anastomosis. She was started on Protonix 40 mg twice a day and is supposed to continue that for 3 months. She tells me she was also given a prescription for Carafate but has not been taking that as prescribed. She says she does not eat 4 times a day therefore, she hasn't been taking the medication 4 times a day. She was also apparently seen at a facility [facility] on Saturday. Her complaints with the same. She was treated and released. This evening the patient was noted to have blood pressure of 106/57. Recheck showed 105/63. It has been stable throughout her stay in the ER. Pulse is running 67. She is satting 97-98% on room air. She is afebrile. She was noted to have heme positive stool. Hemoglobin and hematocrit are 8.9 and 26.8. Platelets are 166. Chemistry panel is unremarkable. She had a CT of the head because of headache, which showed no acute intracranial abnormality. CT of the abdomen and pelvis shows mild diffuse subcutaneous edema. Radiology noted T\the postsurgical changes of gastric bypass with no evidence of obstruction. There is a 1.2 cm enhancing lesion in the right lobe of the liver which is probably a benign vascular lesion. They recommended CT in 4 months for reevaluation. Radiology also noted moderate to severe constipation. The patient complains of epigastric pain with palpation and states that is because of the friability at her anastomosis. She also continues to complain of severe weakness and instability on her feet. She also cites continued shortness of breath. The patient admits that she stopped taking her nutritional supplements and multivitamins some months ago. Iron was noted to be within normal limits during her last admission. LFTs were also within normal. Total protein was 6.5, albumin was 3.9. last admission. PAST MEDICAL HISTORY: 1. Obesity status post gastric bypass. 2. Asthma. 3. Anxiety. 4. Depression. 5. PTSD. 6. Acute blood loss anemia. 7. Hepatitis B PAST SURGICAL HISTORY: 1. Gastric bypass with Breanna-en-Y. 2. IUD SOCIAL HISTORY: Tobacco use: Patient quit smoking in June. ETOH: She has a history of alcohol abuse but states she quit drinking on . Illicit drug use: She has a history of marijuana use but states that she no longer smokes marijuana. FAMILY HISTORY: Patient's mother is 58 years old and has a history of breast cancer. Her father is 62 with a history of pancreatic cancer, diabetes, hypertension and gout. REVIEW OF SYSTEMS: Complete 10 point review systems is negative except as noted above PHYSICAL EXAMINATION: Patient is seen in the ER, lying on the stretcher. She is alert and oriented x 3. HEENT is WNL. Neck is supple. Lungs are clear to auscultation. Heart regular rate and rhythm without murmur. Abdomen is soft, tender in the epigastric area to palpation with bowel sounds positive. Extremities with good ROM and strength equal bilaterally. No lower extremity edema. Pedal pulses are positive. Skin is warm and dry with no obvious rash or lesion. Neuro: grossly intact. Psych: She is cooperative ASSESSMENT AND PLAN: 1. GI bleed with heme positive stool. We'll continue to monitor hemoglobin and hematocrit closely. We'll continue Protonix twice a day as well as Carafate. Clear liquid diet. Will give the patient one bottle of mag citrate tonight with moderate to severe constipation noted on CT. Patient might benefit from general surgery consult with colonoscopy. 2. Anemia secondary to acute blood loss with GI bleed. Patient is subjectively symptomatic. We'll continue to monitor hemoglobin and hematocrit closely and will transfuse as needed. 3. Hypotension, possibly secondary to acute blood loss anemia. We'll continue the patient on IV fluids and monitor with routine vital signs. 4. Anxiety, major depressive disorder and PTSD. Continue home medications including bupropion, Lexapro, lamotrigine and trazodone. 5. Headache , possibly secondary to acute blood loss anemia and hypotension. Plan as outlined above. Will add Tylenol. 6. DVT prophylaxis. Hold anticoagulants with active GI bleed. PREET snell. CODE STATUS: CODE STATUS was discussed with the patient desires to be considered full code. She states her mother would act as her surrogate if she were unable to make her own decisions. Patient is considered high risk for further deterioration including possible hypovolemic shock. She is admitted for close observation and further evaluation and expected to remain at least one midnight. Vital Signs Vital Signs Date Time Temp Pulse Resp B/P (MAP) Pulse Ox O2 Delivery O2 Flow Rate FiO2 12/01/20 22:11 67 97 12/01/20 21:24 105/63 (77) 12/01/20 18:17 17 12/01/20 17:42 98.6 Room Air Laboratory Data Labs 24H Laboratory Tests 2 12/01/20 18:39: Immature Granulocyte % (Auto) 0.2, Neutrophils (%) (Auto) 55.1, Lymphocytes (%) (Auto) 37.4, Monocytes (%) (Auto) 6.0, Eosinophils (%) (Auto) 1.1, Basophils (%) (Auto) 0.2, Neutrophils # (Auto) 2.4, Lymphocytes # (Auto) 1.6, Monocytes # (Auto) 0.3, Eosinophils # (Auto) 0.1, Basophils # (Auto) 0.0, Nucleated Red Blood Cells % (auto) 0.0, Anion Gap 5L, Glomerular Filtration Rate > 60.0, Calcium Level 7.8L, Total Creatine Kinase 59, Creatine Kinase MB 1.3, Creatine Kinase MB Relative Index 2.20, Troponin I < 0.02, Thyroid Stimulating Hormone (TSH) 0.891 12/01/20 22:32: CBC/BMP Laboratory Tests 12/01/20 18:39 Home Medications Scheduled Bupropion Hcl (Bupropion HCl Sr) 150 Mg Tab.sr.12h, 150 MG PO DAILY Escitalopram Oxalate (Lexapro) 10 Mg Tablet, 10 MG PO QHS Lamotrigine (Lamotrigine) 100 Mg Tablet, 100 MG PO BID Omeprazole (Omeprazole) 40 Mg Capsule.dr, 40 MG PO DAILY Pantoprazole Sodium (Protonix) 40 Mg Tablet.dr, 40 MG PO BID Sucralfate (Sucralfate) 1 Gm/10 Ml Oral.susp, 1 GM PO ACHS Trazodone HCl (Trazodone HCl) 50 Mg Tablet, 50 MG PO QHS Scheduled PRN Albuterol Sulfate (Albuterol Sulfate Hfa) 8.5 Gm Hfa.aer.ad, 2 PUFFS INH QID PRN for SOB/WHEEZING Fluticasone Propionate (Fluticasone Propionate) 16 Gm Carmen.susp, 1 SPRAY NARES BID PRN for NASAL CONGESTION Ondansetron HCl (Zofran) 4 Mg Tablet, 4 MG PO Q6-8HP PRN for nausea/vomiting Allergies Coded Allergies: Penicillins (Verified Allergy, Unknown, 08/16/20) Sulfa (Sulfonamide Antibiotics) (Verified Allergy, Unknown, 08/16/20) latex (Verified Allergy, Unknown, 08/16/20) loracarbef (Verified Allergy, Unknown, 08/16/20) A-FIB/CHADSVASC A-FIB History Current/History of A-Fib/PAF?: No CHAITANYA ABRAHAM Dec 01, 2020 23:57
[2020-12-02] VITALS (10 sets, daily range): BP systolic 86–108; BP diastolic 50–74
[2020-12-02] MEDS ORDERED: SUCR1TAB56 PO
[2020-12-02] MEDS ORDERED: LORA-930 PO
[2020-12-02] MEDS ORDERED: ONDA4TAB6 PO
[2020-12-02] MEDS ORDERED: PANT40TA29 PO
[2020-12-02 00:57] LABS: HEMATOCRIT 31.8 % (36.0-47.0); HEMOGLOBIN 10.1 g/dl (12.0-15.5)
[2020-12-02] MEDS: NS 1,000 ML IV SCH ×2 (01:55→08:55)
--- NOTE | 2020-12-02 05:38 | ECGEPIP ---
[facility] - ED Test Date: 2020-12-01 Pat Name: LALA MEEK Department: Room: - Gender: Female [employer]er: : 1990 Requested By: JENNIFER PHOENIX Order Number: [id number] Reading MD: Gabriel Rose Measurements Intervals [place] Rate: 62 P: 65 MN: 134 QRS: 71 QRSD: 86 T: 40 QT: 418 QTc: 424 Interpretive Statements Normal sinus rhythm POOR R WAVE PROGRESSION SIMILAR TO 11/26/20 Electronically Signed on 12-02-2020 5:38:00 EDT by Gabriel Rose
[2020-12-02 06:13] LABS: HEMATOCRIT 25.1 % (36.0-47.0); HEMOGLOBIN 8.4 g/dl (12.0-15.5); MEAN CORPUSCULAR HEMOGLOBIN 32.3 pg (27.0-33.0); MEAN CORPUSCULAR HGB CONC 33.5 g/dl (32.0-36.5); MEAN CORPUSCULAR VOLUME 96.5 fl (80.0-96.0); PLATELET COUNT, AUTOMATED 145 10^3/uL (150-450); WHITE BLOOD COUNT 3.9 10^3/uL (4.0-10.0)
[2020-12-02 06:35] LABS: ALBUMIN 2.7 GM/DL (3.2-5.2); ALT/SGPT 27 U/L (12-78); BILIRUBIN,TOTAL 0.3 MG/DL (0.2-1.0); BLOOD UREA NITROGEN 7 MG/DL (7-18); CALCIUM LEVEL 7.4 MG/DL (8.5-10.1); CARBON DIOXIDE LEVEL 29 MEQ/L (21-32); CHLORIDE LEVEL 109 MEQ/L (98-107); CREATININE FOR GFR 0.44 MG/DL (0.55-1.30); GLOMERULAR FILTRATION RATE > 60.0 (>60); GLUCOSE, FASTING 71 MG/DL (70-100); MAGNESIUM LEVEL 2.9 MG/DL (1.8-2.4); SODIUM LEVEL 141 MEQ/L (136-145); TOTAL PROTEIN 4.7 GM/DL (6.4-8.2)
[2020-12-02 06:44] LABS: TOTAL 25(OH) VITAMIN D 39.3 NG/ML (30.0-100.0); VITAMIN B12 LEVEL 321 PG/ML (247-911)
[2020-12-02 06:45] LABS: FOLATE 7.2 NG/ML (>5.4)
[2020-12-02 07:48] LABS: FERRITIN 32 NG/ML (8-252); IRON (FE) 25 UG/DL (50-170); PERCENT SATURATION 10.5 % (13.2-45.0); TOTAL IRON BINDING CAPACITY 238 UG/DL (250-450)
[2020-12-02] MEDS ORDERED: FLUTICASONE PROP 0.05% NASAL SPRAY 16 GM (FLONASE) PRN (09:00)
[2020-12-02] MEDS ORDERED: ALBUTEROL 90 MCG/ACT 8GM HFA INHALER INH PRN (09:00)
[2020-12-02] MEDS: PANTOPRAZOLE 40MG VIAL (C9113 PER 1) IV SCH ×2 (10:20→20:40)
[2020-12-02] MEDS: LORATADINE 10 MG TAB PO SCH (10:20)
[2020-12-02] MEDS: lamoTRIgine 100MG TAB PO SCH ×2 (10:20→20:40)
--- NOTE | 2020-12-02 13:01 | IPNPDOC ---
Date Seen The patient was seen on 12/02/20. Progress Note SUBJECTIVE: Ms. Caro was lying in bed resting when I came in the room this morning. She states that she continues to feel weak and dizzy. She is able to ambulate to the bathroom but feels dizzy upon standing. She is tolerating liquids and broth but states that she still continues to have occasionally burning epigastric stomach pain. She had one bowel movement this morning which she states is still dark in color. She denies syncope, chest pain, vomiting, constipation, or diarrhea. Patient is worried about having a possible gastrointestinal bleed and is interested in speaking to a surgeon about having a colonoscopy as soon as possible. She called her mother on the phone while we spoke, her mother is very concerned and is currently watching her 10 year old daughter while she is in the hospital. OBJECTIVE PHYSICAL EXAMINATION: General: Patient is awake, alert, oriented times three, patient appears tired and somewhat anxious Eyes: Conjunctival pallor appreciated, no scleral icterus. Cardiovascular: S1, S2, normal rhythm, no murmur, rub, or gallop Respiratory: Chest is clear to auscultation bilaterally, normal respiratory effort with no use of accessory muscles. No rhonchi, wheezes or rubs. Abdomen: Soft, bowel sounds positive, tenderness to deep palpation in left upper quadrant and epigastric region. Extremities: No edema, no tenderness. Skin: Notable tattoos visualized on the body LABORATORY DATA, IMAGING STUDIES, MICROBIOLOGY: Please see below. CXR: 12/01/20: Impression: No acute cardiopulmonary process appreciated Abdomen pelvis CT: 12/01/20: Impression: NC examination in August there has been development of mild diffuse subcutaneous edema. Postsurgical changes of gastric bypass and no evidence of obstruction. 1.2 cm enhancing lesion of the right lobe of the liver. This is probably a benign vascular lesion but to exclude any possibility of pathology recommend follow-up CT in 4 months for reevaluation. Moderate to severe constipation Head CT: 12/01/20: Impression: No acute intracranial abnormality Echocardiogram: Most sinus rhythm poor R wave progression similar to previous EKG on 11/26/2020 DVT prophylaxis ordered?: Holding anticoagulants with active GI bleed. Yuval snell. ASSESSMENT AND PLAN: This is a 30-year-old female with past medical history of gastric bypass with Breanna-en-Y, obesity status post gastric bypass, acute blood loss anemia, asthma, anxiety, depression, and PTSD, who presented to the emergency room for dizziness weakness dark tarry stools and low blood pressure. She was admitted to the hospital 1 week ago on November 26 for similar complaints and was found to be anemic with heme positive stool. She was transfused with 2 units of blood. Patient had an EGD on 11/27 which exhibited friable mucosa and edema with mild stenosis of the gastrojejunal anastomosis. PROBLEMS: #Symptomatic anemia: -Patient states she continues to feel weak and dizzy but had improvement in those symptoms after her blood transfusion -hemoglobin level was 8.4 this morning and improved to 11.1 after 2 units of blood were transfused. -The patient signed a consent form for blood transfusion and was educated on the risks of allergic reactions and possible infection -Dr. Nash was consulted on this patient, we appreciate his input. -Patient would benefit from an outpatient colonoscopy as opposed to an inpatient colonoscopy due to more effective colonoscopy prep and can get an appointment at Dr. Nash's office as soon as Saturday #Epigastric pain -EGD performed on November 27 showed friable mucosa edema and mild stenosis at gastric bypass anastomosis -Started IV Protonix -Continue Carafate -Patient able to tolerate liquids and broth -Advised not to use [id number] NSAIDs #Hypotension -Stable -Discontinued IV fluids, patient appears hydrated and is urinating frequently. -Patient reports feeling dizzy and weak upon standing with improvement after blood transfusion -BP 86/60 this afternoon which has improved to 108/62. -Ordered bedrest with commode until patient symptoms have subsided. -Will continue to monitor #Liver lesion -1.2 cm enhancing lesion found incidentally on abdomen pelvic CT 12/01/20 -Likely a benign vascular lesion -Recommend CT follow-up in 4 months for reevaluation #Constipation -Abdomen pelvis CT showed moderate to severe constipation 12/01/20 -Patient states she had 1 bowel movement this morning after being given magnesium citrate yesterday evening #Obesity s/p gastric bypass surgery -patient seen by Dr. Hernandez #Asthma -continue albuterol inhaler #Depression and anxiety -Continue Lexapro -Continue trazodone -Continue bupropion -Continue lamotrigine DISPOSITION: The patient is clinically improving. We will continue to monitor her H&H levels and symptomatic anemia. We plan on discharging the patient tomorrow with outpatient follow-up with Dr. Nash for colonoscopy. GME ATTESTATION GME ATTESTATION My faculty preceptor for this patient encounter was physically present during the encounter and was fully available. All aspects of the patient interview, examination, medical decision making process, and medical care plan development were reviewed and approved by the faculty preceptor. The faculty preceptor is aware and concurs with the plan as stated in the body of this note and will attest to such by his/her cosignature. VS, I&O, 24H, Fishbone Vital Signs/I&O Vital Signs Date Time Temp Pulse Resp B/P (MAP) Pulse Ox O2 Delivery O2 Flow Rate FiO2 12/02/20 12:07 97.9 64 17 98/62 99 Room Air I&O- Last 24 Hours up to 6 AM 12/02/20 06:00 Intake Total 840 ml Output Total 800 ml Balance 40 ml Laboratory Data 24H LABS Laboratory Tests 2 12/01/20 18:39: Immature Granulocyte % (Auto) 0.2, Neutrophils (%) (Auto) 55.1, Lymphocytes (%) (Auto) 37.4, Monocytes (%) (Auto) 6.0, Eosinophils (%) (Auto) 1.1, Basophils (%) (Auto) 0.2, Neutrophils # (Auto) 2.4, Lymphocytes # (Auto) 1.6, Monocytes # (Auto) 0.3, Eosinophils # (Auto) 0.1, Basophils # (Auto) 0.0, Nucleated Red Blood Cells % (auto) 0.0, Anion Gap 5L, Glomerular Filtration Rate > 60.0, Calcium Level 7.8L, Total Creatine Kinase 59, Creatine Kinase MB 1.3, Creatine Kinase MB Relative Index 2.20, Troponin I < 0.02, Thyroid Stimulating Hormone (TSH) 0.891 12/01/20 22:32: Coronavirus (COVID-19)(PCR) NEGATIVE, Influenza Type A (RT-PCR) NEGATIVE, Influenza Type B (RT-PCR) NEGATIVE, Respiratory Syncytial Virus (PCR) NEGATIVE 12/02/20 05:26: Nucleated Red Blood Cells % (auto) 0.0, Anion Gap 3L, Glomerular Filtration Rate > 60.0, Calcium Level 7.4L, Reticulocyte # (auto) 103.0H, Percent Reticulocyte Count 3.9H, Reticulocyte Hemoglobin Equivalent 33.5, Magnesium Level 2.9H, Iron Level 25L, Total Iron Binding Capacity 238L, Transferrin % Saturation 10.5L, Ferritin 32, Total Bilirubin 0.3, Aspartate Amino Transf (AST/SGOT) 18, Alanine Aminotransferase (ALT/SGPT) 27, Alkaline Phosphatase 52, Total Protein 4.7L, Albumin 2.7L, Albumin/Globulin Ratio 1.4, Vitamin B12 Level 321, 25-Hydroxy Vitamin D Total 39.3, Folate 7.2 CBC/BMP Laboratory Tests 12/01/20 18:39 12/02/20 00:15 12/02/20 05:26 GME ATTESTATION GME ATTESTATION My faculty preceptor for this patient encounter was physically present during the encounter and was fully available. All aspects of the patient interview, examination, medical decision making process, and medical care plan development were reviewed and approved by the faculty preceptor. The faculty preceptor is aware and concurs with the plan as stated in the body of this note and will attest to such by his/her cosignature. ATTENDING NOTE I, Ifeoma Arredondo, have independently examined this patient and performed my own physical exam, as well as reviewed the documentation and edited where necessary. I have discussed in detail with the resident / student the findings and plan of treatment as documented by the resident / student and edited their note. I agree with their findings and treatment plan and have edited their documentation. I will continue to follow the patient during this hospital stay. NAVA HOFFMAN DO Dec 02, 2020 13:01 IFEOMA ARREDONDO MD Dec 03, 2020 18:27
[2020-12-02] MEDS: buPROPion **SR TABLET** (ZYBAN) 150MG PO SCH (13:05)
[2020-12-02] MEDS: SUCRALFATE SUSP 1GM/10ML UD PO SCH ×3 (13:05→20:39)
[2020-12-02] MEDS ORDERED: NS 500 ML IV ONE (15:05)
[2020-12-02] MEDS: ONDANSETRON 4MG/2ML VIAL IV PRN (15:43)
[2020-12-02 18:12] LABS: HEMOGLOBIN 11.1 g/dl (12.0-15.5)
[2020-12-02] MEDS: traZODone 50 MG TAB PO SCH (20:40)
[2020-12-02] MEDS: ESCITALOPRAM OXALATE 10 MG TAB (LEXAPRO) PO SCH (20:40)
[2020-12-02 23:56] LABS: HEMATOCRIT 32.5 % (36.0-47.0); HEMOGLOBIN 10.6 g/dl (12.0-15.5)
[2020-12-03 02:00] VITALS: BP 105/60
[2020-12-03 06:00] VITALS: BP 102/65
[2020-12-03 06:13] LABS: BASO % 0.6 % (0.0-1.0); EOS % 1.2 % (0.0-3.0); HEMATOCRIT 32.4 % (36.0-47.0); HEMOGLOBIN 10.7 g/dl (12.0-15.5); LYMPH # 1.5 10^3/uL (1.5-5.0); LYMPH % 44.7 % (24.0-44.0); MEAN CORPUSCULAR HEMOGLOBIN 30.9 pg (27.0-33.0); MEAN CORPUSCULAR VOLUME 93.6 fl (80.0-96.0); MONO # 0.3 10^3/uL (0.0-0.8); MONO % 7.9 % (2.0-8.0); NEUTROPHILS # 1.6 10^3/uL (1.5-8.5); NEUTROPHILS % 45.3 % (36.0-66.0); PLATELET COUNT, AUTOMATED 135 10^3/uL (150-450); RED BLOOD COUNT 3.46 10^6/uL (4.00-5.40); WHITE BLOOD COUNT 3.4 10^3/uL (4.0-10.0)
[2020-12-03 06:29] LABS: BLOOD UREA NITROGEN 4 MG/DL (7-18); CALCIUM LEVEL 7.6 MG/DL (8.5-10.1); CARBON DIOXIDE LEVEL 29 MEQ/L (21-32); CHLORIDE LEVEL 110 MEQ/L (98-107); CREATININE FOR GFR 0.53 MG/DL (0.55-1.30); GLOMERULAR FILTRATION RATE > 60.0 (>60); GLUCOSE, FASTING 72 MG/DL (70-100); MAGNESIUM LEVEL 2.4 MG/DL (1.8-2.4); POTASSIUM SERUM 3.9 MEQ/L (3.5-5.1); SODIUM LEVEL 141 MEQ/L (136-145)
[2020-12-03] MEDS: buPROPion **SR TABLET** (ZYBAN) 150MG PO SCH (08:33)
[2020-12-03] MEDS: PANTOPRAZOLE 40MG VIAL (C9113 PER 1) IV SCH (08:33)
[2020-12-03] MEDS: lamoTRIgine 100MG TAB PO SCH ×2 (08:33→20:38)
[2020-12-03] MEDS: LORATADINE 10 MG TAB PO SCH (08:34)
[2020-12-03] MEDS: SUCRALFATE SUSP 1GM/10ML UD PO SCH ×4 (08:37→20:38)
[2020-12-03 10:00] VITALS: BP 106/70
[2020-12-03] MEDS ORDERED: MECLIZINE 25 MG TABLET PO ONE (11:00)
[2020-12-03] MEDS: ONDANSETRON 4MG/2ML VIAL IV PRN (13:03)
[2020-12-03 13:55] LABS: HEMATOCRIT 35.9 % (36.0-47.0); HEMOGLOBIN 11.8 g/dl (12.0-15.5); MEAN CORPUSCULAR HEMOGLOBIN 30.8 pg (27.0-33.0); MEAN CORPUSCULAR HGB CONC 32.9 g/dl (32.0-36.5); MEAN CORPUSCULAR VOLUME 93.7 fl (80.0-96.0); PLATELET COUNT, AUTOMATED 163 10^3/uL (150-450); RED BLOOD COUNT 3.83 10^6/uL (4.00-5.40)
[2020-12-03 14:00] VITALS: BP 105/70
[2020-12-03] MEDS ORDERED: MECL-86 PO (14:20)
[2020-12-03] MEDS ORDERED: ONDANSETRON 4 MG ORAL DISINTEGRATING TAB PO PRN (16:25)
--- NOTE | 2020-12-03 17:06 | IPNPDOC ---
Date Seen The patient was seen on 12/03/20. Progress Note SUBJECTIVE: Ms. Caro was lying in bed eating a cup of broth when I came into the room this morning. She was in a pleasant mood and stated that she felt better than she did the prior evening. She stated that on most mornings she wakes up feeling fine and around 10 AM she begins feeling weak and dizzy again. This weakness and dizziness lasts until mid afternoon, upon which time, she begins feeling better again. Patient spoke with Dr. Nash this morning at which time she was told that she can advance her diet to a regular diet at lunch. If she tolerated her lunch today she could eventually be discharged this afternoon and schedule an outpatient appointment with him on Saturday for an EGD and colonoscopy. The patient is concerned about her personal health as was her mother who was on speaker phone during our conversation. She was made aware of the fact that she could be discharged home this afternoon if she remained clinically stable but the decision is ultimately hers to make. OBJECTIVE PHYSICAL EXAMINATION: General: Patient is awake, alert, oriented times three, patient appears tired and somewhat anxious Eyes: no conjunctival pallor appreciated, no scleral icterus. Cardiovascular: S1, S2, normal rhythm, no murmur, rub, or gallop Respiratory: Chest is clear to auscultation bilaterally, normal respiratory effort with no use of accessory muscles. No rhonchi, wheezes or rubs. Abdomen: Soft, bowel sounds positive, tenderness to deep palpation in left upper quadrant and epigastric region. Extremities: No edema, no tenderness. Skin: multiple tattoos visualized on the body LABORATORY DATA, IMAGING STUDIES, MICROBIOLOGY: Please see below. CXR: 12/01/20: Impression: No acute cardiopulmonary process appreciated Abdomen pelvis CT: 12/01/20: Impression: NC examination in August there has been development of mild diffuse subcutaneous edema. Postsurgical changes of gastric bypass and no evidence of obstruction. 1.2 cm enhancing lesion of the right lobe of the liver. This is probably a benign vascular lesion but to exclude any possibility of pathology recommend follow-up CT in 4 months for reevaluation. Moderate to severe constipation Head CT: 12/01/20: Impression: No acute intracranial abnormality DVT prophylaxis ordered?: Yuval Freire, holding anticoagulants with active bleed. ASSESSMENT AND PLAN: This is a 30-year-old female with past medical history of gastric bypass with Breanna-en-Y, obesity status post gastric bypass, acute blood loss anemia, asthma, anxiety, depression, and PTSD, who presented to the emergency room for dizziness weakness dark tarry stools and low blood pressure. She was admitted to the hospital 1 week ago on November 26 for similar complaints and was found to be anemic with heme positive stool. She was transfused with 2 units of blood. Patient had an EGD on 11/27 which exhibited friable mucosa and edema with mild stenosis of the gastrojejunal anastomosis. PROBLEMS: #Symptomatic anemia: -Patient woke up feeling better this morning but began to feel weak and dizzy around 10 am. -Started patient on meclizine for dizziness. -Hgb is 10.7 which has improved since receiving two units of blood yesterday. -Dr. Nash spoke to the patient this morning and advanced her to a regular diet. She tolerated her lunch well and was cleared by PT/OT. At this point she is medically cleared by Dr. Nash and the admission team because she is clinically stable. -Has worked with physical therapy without recurrence of symptoms and has been cleared for DC home -Patient is scheduled for an outpatient EGD and colonoscopy with Dr. Nash for 11/07/20. -Peripheral smear from 11/28/20 shows a macrocytic anemia. Patient B12 and f olate are WNL. #Epigastric pain -EGD performed on November 27 showed friable mucosa edema and mild stenosis at gastric bypass anastomosis -c/w Protonix; will transition to PO -Continue Carafate -Patient able to tolerate regular diet for lunch today. -Advised not to use [id number]-saxzvjh NSAIDs. -Patient states she takes her psychiatric medications on an empty stomach and was encouraged to eat food when she takes these medications in the future. #Hypotension -Stable 110/80 -Patient reports feeling dizzy and weak upon standing with improvement after blood transfusion -Will continue to monitor #Liver lesion -1.2 cm enhancing lesion found incidentally on abdomen pelvic CT 12/01/20 -Likely a benign vascular lesion -Recommend CT follow-up in 4 months for reevaluation -Will have outpatient follow up with PCP for further imaging / workup as needed #Constipation -Abdomen pelvis CT showed moderate to severe constipation 12/01/20 -Patient states her last bowel movement was yesterday and she attributes this to eating a liquid diet. #Obesity s/p gastric bypass surgery -patient seen by Dr. Hernandez #Asthma -continue albuterol inhaler #Depression and anxiety -Continue Lexapro -Continue trazodone -Continue bupropion -Continue lamotrigine DISPOSITION: The patient is medically cleared from the hospital at this time by both the admission team and the physical therapy/Occupational therapy team. We have spoken to Dr. Nash about this patient extensively and agree that she is stable and can be discharged from the hospital today if she feels strong enough to go home and is tolerating food. She is scheduled for an appointment with Dr. Nash on Saturday in his outpatient clinic for an EGD and colonoscopy. We appreciate Dr. Nash's input and continuous help. Dr. Arredondo spoke with patient and her parents this afternoon and they are concerned that she is not well enough to go home at this time. The patient and her parents agreed that she should not be discharged today so her Hgb levels can be monitored further. The patient will be put in an ALC status because she is cleared medically. GME ATTESTATION GME ATTESTATION My faculty preceptor for this patient encounter was physically present during the encounter and was fully available. All aspects of the patient interview, examination, medical decision making process, and medical care plan development were reviewed and approved by the faculty preceptor. The faculty preceptor is aware and concurs with the plan as stated in the body of this note and will attest to such by his/her cosignature. VS, I&O, 24H, Fishbone Vital Signs/I&O Vital Signs Date Time Temp Pulse Resp B/P (MAP) Pulse Ox O2 Delivery O2 Flow Rate FiO2 12/03/20 14:00 98.2 78 17 105/70 (82) 98 Room Air I&O- Last 24 Hours up to 6 AM 12/03/20 06:00 Intake Total 3660 ml Output Total 1475 ml Balance 2185 ml Laboratory Data 24H LABS Laboratory Tests 2 12/03/20 05:32: Immature Granulocyte % (Auto) 0.3, Neutrophils (%) (Auto) 45.3, Lymphocytes (%) (Auto) 44.7H, Monocytes (%) (Auto) 7.9, Eosinophils (%) (Auto) 1.2, Basophils (%) (Auto) 0.6, Neutrophils # (Auto) 1.6, Lymphocytes # (Auto) 1.5, Monocytes # (Auto) 0.3, Eosinophils # (Auto) 0.0, Basophils # (Auto) 0.0, Nucleated Red Blood Cells % (auto) 0.0, Anion Gap 2L, Glomerular Filtration Rate > 60.0, Calcium Level 7.6L, Magnesium Level 2.4 12/03/20 13:43: Nucleated Red Blood Cells % (auto) 0.0 CBC/BMP Laboratory Tests 12/02/20 17:57 12/02/20 23:52 12/03/20 05:32 12/03/20 13:43 GME ATTESTATION GME ATTESTATION My faculty preceptor for this patient encounter was physically present during the encounter and was fully available. All aspects of the patient interview, examination, medical decision making process, and medical care plan development were reviewed and approved by the faculty preceptor. The faculty preceptor is aware and concurs with the plan as stated in the body of this note and will attest to such by his/her cosignature. ATTENDING NOTE I, Ifeoma Arredondo, have independently examined this patient and performed my own physical exam, as well as reviewed the documentation and edited where necessary. I have discussed in detail with the resident / student the findings and plan of treatment as documented by the resident / student and edited their note. I agree with their findings and treatment plan and have edited their documentation. I will continue to follow the patient during this hospital stay. - Extensive discussion with family and patient - Patient and family are hesitant about discharge - Advised patient is medically stable for discharge home now - Advised the patient is hemodynamically stable, H&H has been stable, has been cleared by physical therapy - Cleared from a surgical standpoint with clear instructions and tentatively scheduled EGD / Colonoscopy - Patient will be transitioned to ALC status / Medically cleared - Family has requested continued check of blood work and continued work with PT / ambulation until they deem her fit to return home NAVA HOFFMAN DO Dec 03, 2020 17:05 IFEOMA ARREDONDO MD Dec 03, 2020 17:45
[2020-12-03] MEDS: PANTOPRAZOLE 40MG TAB (PROTONIX) PO SCH (20:38)
[2020-12-03] MEDS: ESCITALOPRAM OXALATE 10 MG TAB (LEXAPRO) PO SCH (20:38)
[2020-12-03] MEDS: DOCUSATE SODIUM 100MG CAPSULE PO SCH (20:38)
[2020-12-03 22:00] VITALS: BP 101/59
[2020-12-03] MEDS: traZODone 50 MG TAB PO SCH (22:56)
[2020-12-04 05:36] LABS: BASO % 0.5 % (0.0-1.0); EOS % 0.9 % (0.0-3.0); HEMATOCRIT 33.4 % (36.0-47.0); LYMPH # 1.7 10^3/uL (1.5-5.0); LYMPH % 38.9 % (24.0-44.0); MEAN CORPUSCULAR HEMOGLOBIN 30.7 pg (27.0-33.0); MEAN CORPUSCULAR HGB CONC 32.9 g/dl (32.0-36.5); MEAN CORPUSCULAR VOLUME 93.3 fl (80.0-96.0); MONO # 0.4 10^3/uL (0.0-0.8); MONO % 8.1 % (2.0-8.0); NEUTROPHILS # 2.3 10^3/uL (1.5-8.5); NEUTROPHILS % 51.1 % (36.0-66.0); PLATELET COUNT, AUTOMATED 142 10^3/uL (150-450); RED BLOOD COUNT 3.58 10^6/uL (4.00-5.40); WHITE BLOOD COUNT 4.4 10^3/uL (4.0-10.0)
[2020-12-04 06:00] VITALS: BP 108/65
[2020-12-04 06:09] LABS: BLOOD UREA NITROGEN 5 MG/DL (7-18); CALCIUM LEVEL 7.8 MG/DL (8.5-10.1); CARBON DIOXIDE LEVEL 28 MEQ/L (21-32); CHLORIDE LEVEL 110 MEQ/L (98-107); CREATININE FOR GFR 0.58 MG/DL (0.55-1.30); GLOMERULAR FILTRATION RATE > 60.0 (>60); GLUCOSE, FASTING 71 MG/DL (70-100); MAGNESIUM LEVEL 2.2 MG/DL (1.8-2.4); POTASSIUM SERUM 3.9 MEQ/L (3.5-5.1); SODIUM LEVEL 144 MEQ/L (136-145)
[2020-12-04] MEDS: LORATADINE 10 MG TAB PO SCH (09:08)
[2020-12-04] MEDS: SUCRALFATE SUSP 1GM/10ML UD PO SCH ×2 (09:08→12:11)
[2020-12-04] MEDS: buPROPion **SR TABLET** (ZYBAN) 150MG PO SCH (09:08)
[2020-12-04] MEDS: lamoTRIgine 100MG TAB PO SCH (09:08)
[2020-12-04] MEDS: PANTOPRAZOLE 40MG TAB (PROTONIX) PO SCH (09:08)
[2020-12-04] MEDS: DOCUSATE SODIUM 100MG CAPSULE PO SCH (09:08)
[2020-12-04] MEDS ORDERED: FERR325T3 PO (13:24)
[2020-12-04] MEDS ORDERED: DOCU100C16 PO (13:24)
--- NOTE | 2020-12-04 13:44 | DS.PDOC ---
Discharge Summary General Date of Admission Dec 03, 2020 at 15:56 Date of Discharge 12/04/2020 Discharge Summary PROCEDURES PERFORMED DURING STAY: [None]. ADMITTING DIAGNOSES / DISCHARGE DIAGNOSES: Symptomatic anemia - likely 2/2 below Epigastric pain - likely 2/2 friable mucosa / edema and mild stenosis at gastric bypass anastomosis Hypotension Liver lesion -Likely a benign vascular lesion Constipation Obesity s/p Gastric bypass surgery Asthma Depression / Anxiety DVT prophylaxis COMPLICATIONS/CHIEF COMPLAINT: Dizziness / Dark stools HISTORY OF PRESENT ILLNESS: Patient is a 30-year-old female with a PMHx of Gastric bypass (w/ Breanna-en-Y), Obesity s/p Gastric bypass, Anemia, Asthma, Anxiety / Depression / PTSD, who presented to the ER with dizziness and reported dark stools. Patient was admitted to hospital service for further evaluation and treatment. General surgery was called on consultation. Patient was recently at [facility] from 11/26 to 11/27; she had received 2 units PRBC and had an EGD on 11/27 which exhibited friable mucosa and edema with mild stenosis of the gastrojejunal anastomosis. Patient was subsequently discharged home with Carafate and Protonix with instructions to follow up with general surgery. Patient was seen and examined at the bedside this afternoon. Patient has had an uneventful day. Denies any chest pain, shortness of breath, palpitations, nausea, vomiting, any significant abdominal pain. Patient still reports constipation. Denies any urinary discomfort. HOSPITAL COURSE: Symptomatic anemia - likely 2/2 below - Hemodynamically stable and not tachycardic - Hemoglobin has remained stable - s/p 2 units PRBC - Will have outpatient follow-up with Gen. surgery, Dr. Nash on 12/06/2020 for repeat EGD and colonoscopy scheduling likely for the subsequent day - Patient has been advised to follow-up with her primary care provider for repeat lab work and testing as needed Epigastric pain - likely 2/2 friable mucosa / edema and mild stenosis at gastric bypass anastomosis -EGD performed on November 27 showed friable mucosa edema and mild stenosis at gastric bypass anastomosis - Patient has been advised to avoid the use of NSAIDs - c/w Protonix and Carafate - Will have outpatient follow-up with Surgery on 12/06/2020 for repeat EGD and colonoscopy scheduling Hypotension - Patient is asymptomatic and has been ambulating without any difficulty - Review of prior history has revealed the patient has been having chronic low blood pressure in the past - Has cleared PT for DC home Liver lesion -Likely a benign vascular lesion - Imaging has revealed a 1.2 cm enhancing lesion found incidentally on abdomen pelvic CT 12/01/20 - Recommend CT follow-up in 4 months for reevaluation - Will have outpatient follow up with PCP for further imaging / workup as needed Constipation - Abdomen pelvis CT showed moderate to severe constipation 12/01/20 - Patient has had a two BM on 12/02 - c/w Docusate on discharge and increased hydration Obesity s/p Gastric bypass surgery - Patient follows with Dr. Hernandez Asthma - No evidence of exacerbation - Continue with inhaled therapy as ordered Depression / Anxiety - c/w Lexapro, Trazodone, Bupropion, Lamotrigine DVT prophylaxis - c/w TEDs / Sequentials DISCHARGE MEDICATIONS: Please see below. ALLERGIES: Please see below. PHYSICAL EXAMINATION ON DISCHARGE: Vitals (See below) General: Lying in bed, no acute distress, comfortable, AAOx3 HEENT: NC, AT CVS: RRR, +S1S2 Lungs: Fair air entry b/l, no evidence of wheezing, rales or rhonchi Abdomen: Soft, ND, mild epigastric tenderness Extremities: - Edema, - Calf tenderness LABORATORY DATA: Please see below. IMAGING: CXR 12/01: No acute cardiopulmonary process appreciated. CT abdomen / pelvis 12/01: 1. Since the examination of August there is been development of mild diffuse subcutaneous edema. 2. Postsurgical changes of gastric bypass and no evidence of obstruction. 3. 1.2 cm enhancing lesion of the right lobe of the liver. This is probably a benign vascular lesion but to exclude any possibility of pathology recommend follow-up CT in 4 months for re-evaluation and to document stability. 4. Moderate to severe constipation. CT head 12/01: No acute intracranial abnormality. ACTIVITY: [As tolerated]. DISCHARGE PLAN: Please follow-up with primary care provider within the next 7 days Please follow-up with Dr. Nash for scheduled appointment on 12/06/2020 for scheduling of outpatient EGD and colonoscopy Remain compliant with treatment plan and medications Return to the ER if you experience any problems DISPOSITION: Home DISCHARGE CONDITION: [Stable]. TIME SPENT ON DISCHARGE: 35 minutes. Vital Signs/I&Os Vital Signs Date Time Temp Pulse Resp B/P (MAP) Pulse Ox O2 Delivery O2 Flow Rate FiO2 7/4/21 06:00 97.7 68 16 108/65 (79) 98 Room Air I&O- Last 24 Hours up to 6 AM 12/04/20 05:59 Intake Total 1580 ml Output Total 375 ml Balance 1205 ml Laboratory Data Labs 24H Laboratory Tests 2 12/03/20 13:43: Nucleated Red Blood Cells % (auto) 0.0 12/04/20 05:24: Nucleated Red Blood Cells % (auto) 0.0, Immature Granulocyte % (Auto) 0.5, Neutrophils (%) (Auto) 51.1, Lymphocytes (%) (Auto) 38.9, Monocytes (%) (Auto) 8.1H, Eosinophils (%) (Auto) 0.9, Basophils (%) (Auto) 0.5, Neutrophils # (Auto) 2.3, Lymphocytes # (Auto) 1.7, Monocytes # (Auto) 0.4, Eosinophils # (Auto) 0.0, Basophils # (Auto) 0.0, Anion Gap 6L, Glomerular Filtration Rate > 60.0, Calcium Level 7.8L, Magnesium Level 2.2 CBC/BMP Laboratory Tests 12/03/20 13:43 12/04/20 05:24 Discharge Medications Scheduled Bupropion Hcl (Bupropion HCl Sr) 150 Mg Tab.sr.12h, 150 MG PO DAILY, (Reported) Docusate Sodium (Docusate Sodium) 100 Mg Capsule, 1 CAP PO BID for constipation Escitalopram Oxalate (Lexapro) 10 Mg Tablet, 10 MG PO QHS, (Reported) Ferrous Sulfate (Ferrous Sulfate) 325 Mg Tablet.dr, 1 TAB PO BID Lamotrigine (Lamotrigine) 100 Mg Tablet, 100 MG PO BID, (Reported) Loratadine (Loratadine) 10 Mg Tablet, 10 MG PO DAILY, (Reported) Pantoprazole Sodium (Pantoprazole Sodium) 40 Mg Tablet.dr, 40 MG PO BID, (Reported) Sucralfate (Sucralfate) 1 Gm Tablet, 1 GM PO ACHS, (Reported) Trazodone HCl (Trazodone HCl) 50 Mg Tablet, 50 MG PO QHS, (Reported) Scheduled PRN Albuterol Sulfate (Albuterol Sulfate Hfa) 8.5 Gm Hfa.aer.ad, 1 PUFF INH Q6H PRN for SHORTNESS OF BREATH, (Reported) Fluticasone Propionate (Fluticasone Propionate) 16 Gm [place].susp, 1 SPRAY NA BID PRN for NASAL CONGESTION, (Reported) Meclizine HCl (Meclizine HCl) 25 Mg Tablet, 25 MG PO BIDP PRN for DIZZINESS Ondansetron (Ondansetron Odt) 4 Mg Tab.rapdis, 4 MG PO Q6H PRN for NAUSEA OR VOMITING, (Reported) Allergies Coded Allergies: Penicillins (Verified Allergy, Unknown, 08/16/20) Sulfa (Sulfonamide Antibiotics) (Verified Allergy, Unknown, 08/16/20) latex (Verified Allergy, Unknown, 08/16/20) loracarbef (Verified Allergy, Unknown, 08/16/20) LAUREN HECTOR MD Dec 04, 2020 13:44
== END 2020-12-04 14:51 | disposition home or self-care (01) | DRG 663 ==
LOC: M ED 17:41 → M ED INP 17:42 → M MSPAV 12-02 01:25 → OBSVTOIN 12-03 15:56
PROVIDERS: ADMIT General Practice; ATTEND Internal Medicine
PROC: 30233N1 Transfusion of Nonautologous Red Blood Cells into Peripheral Vein, Percutaneous Approach (ICD-10-PCS; principal; 2020-12-03)
DX: D62 Acute posthemorrhagic anemia (principal); B19.10 Unspecified viral hepatitis B without hepatic coma; K31.89 Other diseases of stomach and duodenum; Z98.84 Bariatric surgery status; J45.909 Unspecified asthma, uncomplicated; F41.9 Anxiety disorder, unspecified; F32.9 Major depressive disorder, single episode, unspecified; F43.10 Post-traumatic stress disorder, unspecified; Z87.891 Personal history of nicotine dependence; I95.1 Orthostatic hypotension; R51.9 Headache, unspecified; Z79.899 Other long term (current) drug therapy; Z88.0 Allergy status to penicillin; Z88.2 Allergy status to sulfonamides; Z91.040 Latex allergy status; Z88.8 Allergy status to other drugs, medicaments and biological substances; D13.4 Benign neoplasm of liver; K59.00 Constipation, unspecified; K95.89 Other complications of other bariatric procedure

== ENCOUNTER → 2020-12-12 | Outpatient (CLI) | payer OTHER ==
[~2020-12-12] MED LIST changes: +DOCU100C16 PO; +FERR325T3 PO; +LORA-930 PO; +MECL-86 PO; +PANT40TA29 PO; +SUCR1TAB56 PO; +ZOFR4TAB16 PO
[2020-12-12 14:04] LABS: HEMATOCRIT 41.9 % (36.0-47.0); HEMOGLOBIN 13.3 g/dl (12.0-15.5); MEAN CORPUSCULAR HEMOGLOBIN 30.9 pg (27.0-33.0); MEAN CORPUSCULAR HGB CONC 31.7 g/dl (32.0-36.5); MEAN CORPUSCULAR VOLUME 97.2 fl (80.0-96.0); PLATELET COUNT, AUTOMATED 169 10^3/uL (150-450); RED BLOOD COUNT 4.31 10^6/uL (4.00-5.40); WHITE BLOOD COUNT 5.4 10^3/uL (4.0-10.0)
[2020-12-12 14:40] LABS: FOLATE 9.8 NG/ML; FREE T4 0.86 NG/DL (0.76-1.46); PERCENT SATURATION 47.6 % (13.2-45.0); THYROID STIMULATING HORMONE 1.25 uIU/ML (0.358-3.740)
== END ==
LOC: M LAB 12:46
PROVIDERS: ATTEND Internal Medicine Gastroenterology
DX: D64.9 Anemia, unspecified (principal)

== ENCOUNTER → 2020-12-16 | Outpatient (CLI) | payer OTHER ==
[2020-12-16 15:24] LABS: BASO % 0.2 % (0.0-1.0); EOS % 0.4 % (0.0-3.0); HEMATOCRIT 38.2 % (36.0-47.0); HEMOGLOBIN 12.4 g/dl (12.0-15.5); LYMPH # 2.1 10^3/uL (1.5-5.0); LYMPH % 39.9 % (24.0-44.0); MEAN CORPUSCULAR HEMOGLOBIN 30.6 pg (27.0-33.0); MEAN CORPUSCULAR HGB CONC 32.5 g/dl (32.0-36.5); MEAN CORPUSCULAR VOLUME 94.3 fl (80.0-96.0); MONO # 0.3 10^3/uL (0.0-0.8); MONO % 5.8 % (2.0-8.0); NEUTROPHILS # 2.9 10^3/uL (1.5-8.5); NEUTROPHILS % 53.5 % (36.0-66.0); PLATELET COUNT, AUTOMATED 152 10^3/uL (150-450); RED BLOOD COUNT 4.05 10^6/uL (4.00-5.40); WHITE BLOOD COUNT 5.4 10^3/uL (4.0-10.0)
== END ==
LOC: M PLALAB 14:06
PROVIDERS: ATTEND Physician Assistant Medical
DX: K92.2 Gastrointestinal hemorrhage, unspecified (principal)

== ENCOUNTER → 2020-12-20 | Outpatient (CLI) | payer OTHER ==
--- NOTE | 2020-12-20 10:38 | REP ---
INDICATION: R10.13- EPIGASTRIC PAIN. COMPARISON: Comparison CT study December 01, 2020.. TECHNIQUE: Right upper quadrant sonography. FINDINGS: Scanning through the right upper quadrant the abdomen demonstrates a normal sized and walled gallbladder without evidence of stone or polyp. Common bile duct is normal measuring 0.4 cm in greatest diameter. No focal liver lesion is seen. The liver is not felt to be enlarged. No pancreatic abnormality is observed. There is no evidence of ascites or right renal abnormality. The right kidney is normal measuring 11.7 x 5.0 x 4.2 cm. The hypervascular liver lesion seen on recent CT is not appreciated sonographically. IMPRESSION: Negative right upper quadrant sonogram. The hypervascular lesion seen on recent CT is not appreciated sonographically. Recommend follow-up as per CT report. <Electronically signed by Jaya Acuña > 12/20/20 [id number]
== END ==
LOC: M RAD 07:18
PROVIDERS: ATTEND Internal Medicine Gastroenterology
DX: R10.13 Epigastric pain (principal)

== ENCOUNTER 2020-12-27 13:00 | Outpatient (RCR) | payer OTHER | END 2020-12-31 | LOC: M OUTALCOH 13:00 | PROVIDERS: ATTEND Psychiatry & Neurology Psychiatry | DX: F10.20 Alcohol dependence, uncomplicated (principal); Z72.0 Tobacco use ==

== ENCOUNTER → 2021-01-03 | Outpatient (CLI) | payer OTHER ==
[2021-01-03 19:07] LABS: BASO % 0.4 % (0.0-1.0); EOS # 0.1 10^3/uL (0.0-0.5); EOS % 1.5 % (0.0-3.0); HEMATOCRIT 37.3 % (36.0-47.0); HEMOGLOBIN 11.9 g/dl (12.0-15.5); LYMPH # 1.5 10^3/uL (1.5-5.0); LYMPH % 31.7 % (24.0-44.0); MEAN CORPUSCULAR HEMOGLOBIN 30.8 pg (27.0-33.0); MEAN CORPUSCULAR HGB CONC 31.9 g/dl (32.0-36.5); MEAN CORPUSCULAR VOLUME 96.6 fl (80.0-96.0); MONO # 0.3 10^3/uL (0.0-0.8); MONO % 5.6 % (2.0-8.0); NEUTROPHILS # 2.9 10^3/uL (1.5-8.5); NEUTROPHILS % 60.4 % (36.0-66.0); PLATELET COUNT, AUTOMATED 149 10^3/uL (150-450); RED BLOOD COUNT 3.86 10^6/uL (4.00-5.40); WHITE BLOOD COUNT 4.8 10^3/uL (4.0-10.0)
[2021-01-03 19:28] LABS: ALBUMIN 3.5 GM/DL (3.2-5.2); ALT/SGPT 23 U/L (12-78); BILIRUBIN,TOTAL 0.2 MG/DL (0.2-1.0); BLOOD UREA NITROGEN 11 MG/DL (7-18); CALCIUM LEVEL 8.4 MG/DL (8.5-10.1); CARBON DIOXIDE LEVEL 29 MEQ/L (21-32); CHLORIDE LEVEL 109 MEQ/L (98-107); CREATININE FOR GFR 0.67 MG/DL (0.55-1.30); FERRITIN 49 NG/ML (8-252); GLOMERULAR FILTRATION RATE > 60.0 (>60); GLUCOSE, FASTING 90 MG/DL (70-100); IRON (FE) 89 UG/DL (50-170); POTASSIUM SERUM 3.5 MEQ/L (3.5-5.1); SODIUM LEVEL 144 MEQ/L (136-145); TOTAL PROTEIN 6.1 GM/DL (6.4-8.2)
== END ==
LOC: M LAB 18:32
PROVIDERS: ATTEND Physician Assistant Medical
DX: I95.1 Orthostatic hypotension (principal); D62 Acute posthemorrhagic anemia

== ENCOUNTER → 2021-01-05 | Outpatient (CLI) | payer OTHER ==
[2021-01-05 17:12] LABS: BASO % 0.5 % (0.0-1.0); EOS % 0.5 % (0.0-3.0); HEMATOCRIT 37.2 % (36.0-47.0); HEMOGLOBIN 12.1 g/dl (12.0-15.5); LYMPH # 1.9 10^3/uL (1.5-5.0); LYMPH % 34.2 % (24.0-44.0); MEAN CORPUSCULAR HEMOGLOBIN 31.3 pg (27.0-33.0); MEAN CORPUSCULAR HGB CONC 32.5 g/dl (32.0-36.5); MEAN CORPUSCULAR VOLUME 96.1 fl (80.0-96.0); MONO # 0.4 10^3/uL (0.0-0.8); MONO % 6.6 % (2.0-8.0); NEUTROPHILS # 3.2 10^3/uL (1.5-8.5); PLATELET COUNT, AUTOMATED 154 10^3/uL (150-450); RED BLOOD COUNT 3.87 10^6/uL (4.00-5.40); WHITE BLOOD COUNT 5.5 10^3/uL (4.0-10.0)
== END ==
LOC: M PLALAB 15:07
PROVIDERS: ATTEND Physician Assistant Medical
DX: K92.1 Melena (principal)

== ENCOUNTER 2021-01-27 09:00 | Outpatient (RCR) | payer OTHER | END 2021-01-31 | LOC: M OUTALCOH 09:00 | PROVIDERS: ATTEND Psychiatry & Neurology Psychiatry | DX: F10.20 Alcohol dependence, uncomplicated (principal); F17.201 Nicotine dependence, unspecified, in remission ==

== ENCOUNTER → 2021-01-30 | Outpatient (CLI) | payer OTHER ==
[2021-01-30 15:05] LABS: BASO % 0.5 % (0.0-1.0); EOS % 1.1 % (0.0-3.0); LYMPH # 1.3 10^3/uL (1.5-5.0); LYMPH % 35.8 % (24.0-44.0); MEAN CORPUSCULAR HEMOGLOBIN 31.3 pg (27.0-33.0); MEAN CORPUSCULAR HGB CONC 32.5 g/dl (32.0-36.5); MEAN CORPUSCULAR VOLUME 96.2 fl (80.0-96.0); MONO # 0.2 10^3/uL (0.0-0.8); MONO % 6.2 % (2.0-8.0); NEUTROPHILS # 2.1 10^3/uL (1.5-8.5); NEUTROPHILS % 56.1 % (36.0-66.0); PLATELET COUNT, AUTOMATED 164 10^3/uL (150-450); RED BLOOD COUNT 4.16 10^6/uL (4.00-5.40); WHITE BLOOD COUNT 3.7 10^3/uL (4.0-10.0)
[2021-01-30 15:17] LABS: FERRITIN 34 NG/ML (8-252); FREE T4 0.92 NG/DL (0.76-1.46); IRON (FE) 80 UG/DL (50-170)
[2021-01-30 15:19] LABS: VITAMIN B12 LEVEL 525 PG/ML (247-911)
== END ==
LOC: M PLALAB 12:27
PROVIDERS: ATTEND Physician Assistant Medical
DX: D62 Acute posthemorrhagic anemia (principal); R41.3 Other amnesia; K92.2 Gastrointestinal hemorrhage, unspecified

== ENCOUNTER 2021-02-01 10:01 | Outpatient (RCR) | payer OTHER | END 2021-03-02 | LOC: M OUTALCOH 10:01 | PROVIDERS: ATTEND Psychiatry & Neurology Psychiatry | DX: F10.20 Alcohol dependence, uncomplicated (principal); F17.201 Nicotine dependence, unspecified, in remission ==

== ENCOUNTER 2021-02-03 10:55 | Outpatient (CLI) | payer OTHER ==
[~2021-02-03] VITALS: Ht 157.5 cm; Wt 60.9 kg
[~2021-02-03 10:55] MED LIST changes: +ALBUTEROL SULFATE 2.5 MG/0.5 ML INH NEB SOLN INH PRN; +EPINEPHrine INJ 1 MG/ML 1ML AMP IM PRN; +diphenhydrAMINE 50MG/ML VIAL (J1200) IV PRN; +methylPREDNISolone 125MG 2ML VIAL IV PRN
[2021-02-03 11:00] VITALS: BP 108/65
[2021-02-03] MEDS ORDERED: diphenhydrAMINE 25MG CAP PO ONE (11:00)
[2021-02-03] MEDS ORDERED: NS 1,000 ML IV SCH (11:00)
[2021-02-03] MEDS ORDERED: IRON SUCROSE 25 MG in NS 23.75 ML IV ONE (11:00)
[2021-02-03] MEDS ORDERED: NS IV ONE (11:00)
[2021-02-03] MEDS ORDERED: IRON SUCROSE IV ONE (11:00)
[2021-02-03 12:35] VITALS: BP 112/68
[2021-02-03 13:20] VITALS: BP 118/72
[2021-02-03 15:15] VITALS: BP 106/56
== END 2021-02-03 15:15 | disposition home or self-care (01) ==
LOC: M INFU 10:55
PROVIDERS: ATTEND Physician Assistant Medical
DX: D50.9 Iron deficiency anemia, unspecified (principal); Z88.0 Allergy status to penicillin; Z88.2 Allergy status to sulfonamides; Z91.040 Latex allergy status
CPT/HCPCS: 96365; 96366; J1756

== ENCOUNTER → 2021-02-09 | Outpatient (CLI) | payer OTHER ==
[~2021-02-09] MED LIST changes: -ALBUTEROL SULFATE 2.5 MG/0.5 ML INH NEB SOLN INH PRN; -EPINEPHrine INJ 1 MG/ML 1ML AMP IM PRN; -diphenhydrAMINE 50MG/ML VIAL (J1200) IV PRN; -methylPREDNISolone 125MG 2ML VIAL IV PRN
--- NOTE | 2021-02-09 11:16 | REP ---
INDICATION: RUQ PAIN, BARIATRIC SURGERY STATUS. COMPARISON: Comparison CT study December 01, 2020. TECHNIQUE/RADIOTRACER AND DOSE: 4.1 mCi of Technetium-99m mebrofenin was injected and sequential anterior images are acquired. 65 minutes after the mebrofenin injection, the patient consumed 8 ounces Ensure and an additional 60 minutes of imaging was acquired. Regions of interest are plotted around the gallbladder. FINDINGS: The initial hepatocellular parenchymal uptake phase is normal and homogeneous. Intra- and extra-hepatic bile ducts are labeled by the 10-minute image. The gallbladder is first labeled on the 10-minute image. There is normal washout from the liver parenchyma into the gallbladder and small intestine on subsequent images. The gallbladder ejection fraction is 25%. Values greater than 35% are considered normal with this technique. IMPRESSION: Normal hepatobiliary scan and slightly decreased gallbladder ejection fraction. <Electronically signed by Jaya Acuña > 02/09/21 [id number]
== END ==
LOC: M RAD 08:19
PROVIDERS: ATTEND Physician Assistant
DX: R10.11 Right upper quadrant pain (principal); Z98.84 Bariatric surgery status
CPT/HCPCS: 78227; A9537

== ENCOUNTER 2021-02-20 11:07 | Outpatient (CLI) | payer OTHER ==
[~2021-02-20] VITALS: Ht 157.5 cm; Wt 60.8 kg
[~2021-02-20 11:07] MED LIST changes: +ALBUTEROL SULFATE 2.5 MG/0.5 ML INH NEB SOLN INH PRN; +EPINEPHrine INJ 1 MG/ML 1ML AMP IM PRN; +IRON SUCROSE 300 MG in NS 250 ML OVER 90 MIN. IV ONE; +NS 1,000 ML IV SCH; +diphenhydrAMINE 50MG/ML VIAL (J1200) IV PRN; +methylPREDNISolone 125MG 2ML VIAL IV PRN
[2021-02-20 11:10] VITALS: BP 104/56
[2021-02-20] MEDS ORDERED: diphenhydrAMINE 25MG CAP PO ONE (11:45)
[2021-02-20 12:45] VITALS: BP 100/59
[2021-02-20 14:45] VITALS: BP 114/69
[2021-02-20 15:30] VITALS: BP 107/68
== END 2021-02-20 15:30 | disposition home or self-care (01) ==
LOC: M INFU 11:07
PROVIDERS: ATTEND Physician Assistant Medical
DX: D50.9 Iron deficiency anemia, unspecified (principal); Z88.0 Allergy status to penicillin; Z88.2 Allergy status to sulfonamides; Z91.040 Latex allergy status
CPT/HCPCS: 96365; 96366; J1756

== ENCOUNTER 2021-03-17 09:00 | Outpatient (RCR) | payer OTHER ==
[~2021-03-17 09:00] MED LIST changes: -ALBUTEROL SULFATE 2.5 MG/0.5 ML INH NEB SOLN INH PRN; -EPINEPHrine INJ 1 MG/ML 1ML AMP IM PRN; -IRON SUCROSE 300 MG in NS 250 ML OVER 90 MIN. IV ONE; -NS 1,000 ML IV SCH; -diphenhydrAMINE 50MG/ML VIAL (J1200) IV PRN; -methylPREDNISolone 125MG 2ML VIAL IV PRN
== END 2021-04-02 ==
LOC: M OUTALCOH 09:00
PROVIDERS: ATTEND Psychiatry & Neurology Psychiatry
DX: F10.20 Alcohol dependence, uncomplicated (principal); F17.201 Nicotine dependence, unspecified, in remission

== ENCOUNTER → 2021-04-03 | Outpatient (CLI) | payer OTHER ==
[2021-04-03 18:35] LABS: BASO % 0.6 % (0.0-1.0); EOS # 0.2 10^3/uL (0.0-0.5); HEMATOCRIT 36.9 % (36.0-47.0); LYMPH % 38.3 % (24.0-44.0); MEAN CORPUSCULAR HEMOGLOBIN 32.4 pg (27.0-33.0); MEAN CORPUSCULAR HGB CONC 32.5 g/dl (32.0-36.5); MEAN CORPUSCULAR VOLUME 99.7 fl (80.0-96.0); MONO # 0.3 10^3/uL (0.0-0.8); MONO % 5.5 % (2.0-8.0); NEUTROPHILS # 2.8 10^3/uL (1.5-8.5); NEUTROPHILS % 52.6 % (36.0-66.0); PLATELET COUNT, AUTOMATED 160 10^3/uL (150-450); WHITE BLOOD COUNT 5.3 10^3/uL (4.0-10.0)
[2021-04-03 19:01] LABS: FERRITIN 151 NG/ML (8-252); IRON (FE) 91 UG/DL (50-170)
== END ==
LOC: M PLALAB 12:29
PROVIDERS: ATTEND Physician Assistant Medical
DX: D62 Acute posthemorrhagic anemia (principal)

== ENCOUNTER → 2021-05-02 | Outpatient (RCR) | payer OTHER ==
[~2021-05-02] MED LIST changes: +OMEP-173 PO; -OMEP-218 PO; -OMEP-221 PO; +OMEP40CA5 PO
== END ==
LOC: M OUTALCOH 04-03 15:29
PROVIDERS: ATTEND Psychiatry & Neurology Psychiatry
DX: F10.20 Alcohol dependence, uncomplicated (principal); F17.201 Nicotine dependence, unspecified, in remission

== ENCOUNTER 2021-05-24 09:00 | Outpatient (RCR) | payer OTHER ==
[~2021-05-24 09:00] MED LIST changes: -OMEP-173 PO; +OMEP-218 PO; +OMEP-221 PO; -OMEP40CA5 PO
== END 2021-06-02 ==
LOC: M OUTALCOH 09:00
PROVIDERS: ATTEND Psychiatry & Neurology Psychiatry
DX: F10.20 Alcohol dependence, uncomplicated (principal); F17.201 Nicotine dependence, unspecified, in remission

== ENCOUNTER → 2021-07-03 | Outpatient (RCR) | payer OTHER ==
[~2021-07-03] MED LIST changes: +OMEP-173 PO; -OMEP-218 PO; -OMEP-221 PO; +OMEP40CA5 PO
== END ==
LOC: M OUTALCOH 06-12 15:56
PROVIDERS: ATTEND Psychiatry & Neurology Psychiatry
DX: F10.20 Alcohol dependence, uncomplicated (principal); F17.201 Nicotine dependence, unspecified, in remission

== ENCOUNTER 2021-07-27 09:00 | Outpatient (RCR) | payer OTHER | END 2021-07-31 | LOC: M OUTALCOH 09:00 | PROVIDERS: ATTEND Psychiatry & Neurology Psychiatry | DX: F10.21 Alcohol dependence, in remission (principal); F17.201 Nicotine dependence, unspecified, in remission ==

== ENCOUNTER 2021-08-22 09:00 | Outpatient (RCR) | payer OTHER | END 2021-08-31 | LOC: M OUTALCOH 09:00 | PROVIDERS: ATTEND Psychiatry & Neurology Psychiatry | DX: F10.21 Alcohol dependence, in remission (principal); F17.201 Nicotine dependence, unspecified, in remission ==

== ENCOUNTER 2021-09-26 09:57 | Outpatient (RCR) | payer OTHER ==
[~2021-09-26 09:57] MED LIST changes: +BUPR-71 PO; -BUPR150T5 PO
== END 2021-09-30 ==
LOC: M OUTALCOH 09:57
PROVIDERS: ATTEND Psychiatry & Neurology Psychiatry
DX: F10.21 Alcohol dependence, in remission (principal); F17.201 Nicotine dependence, unspecified, in remission

== ENCOUNTER 2021-10-11 09:57 | Outpatient (RCR) | payer OTHER | END 2021-10-31 | LOC: M OUTALCOH 09:57 | PROVIDERS: ATTEND Psychiatry & Neurology Psychiatry | DX: F10.21 Alcohol dependence, in remission (principal); F17.201 Nicotine dependence, unspecified, in remission ==

== ENCOUNTER → 2021-10-18 | Outpatient (CLI) | payer OTHER ==
[2021-10-18 15:21] LABS: BASO % 0.7 % (0.0-1.0); EOS # 0.1 10^3/uL (0.0-0.5); EOS % 1.2 % (0.0-3.0); HEMATOCRIT 37.9 % (36.0-47.0); HEMOGLOBIN 12.7 g/dl (12.0-15.5); MEAN CORPUSCULAR HEMOGLOBIN 33.4 pg (27.0-33.0); MEAN CORPUSCULAR HGB CONC 33.5 g/dl (32.0-36.5); MEAN CORPUSCULAR VOLUME 99.7 fl (80.0-96.0); MONO # 0.4 10^3/uL (0.0-0.8); MONO % 6.4 % (2.0-8.0); NEUTROPHILS # 3.2 10^3/uL (1.5-8.5); NEUTROPHILS % 56.3 % (36.0-66.0); PLATELET COUNT, AUTOMATED 194 10^3/uL (150-450); WHITE BLOOD COUNT 5.7 10^3/uL (4.0-10.0)
[2021-10-18 15:41] LABS: MAGNESIUM LEVEL 2.2 MG/DL (1.8-2.4)
== END ==
LOC: M PLALAB 12:41
PROVIDERS: ATTEND Nurse Practitioner Family
DX: D64.9 Anemia, unspecified (principal); Z98.84 Bariatric surgery status

== ENCOUNTER → 2021-11-30 | Outpatient (RCR) | payer OTHER | LOC: M OUTALCOH 11-02 09:09 | PROVIDERS: ATTEND Psychiatry & Neurology Psychiatry | DX: F10.21 Alcohol dependence, in remission (principal); F17.201 Nicotine dependence, unspecified, in remission ==

== ENCOUNTER → 2021-11-30 | Outpatient (CLI) | payer OTHER | LOC: M PLALAB 13:53 | PROVIDERS: ATTEND Psychiatry & Neurology Psychiatry | DX: F10.20 Alcohol dependence, uncomplicated (principal) ==

== ENCOUNTER 2021-12-22 14:30 | Outpatient (RCR) | payer OTHER | END 2021-12-31 | LOC: M OUTALCOH 14:30 | PROVIDERS: ATTEND Psychiatry & Neurology Psychiatry | DX: F10.21 Alcohol dependence, in remission (principal); F17.201 Nicotine dependence, unspecified, in remission ==

== ENCOUNTER → 2022-05-01 | Outpatient (CLI) | payer OTHER ==
[2022-05-01 14:07] LABS: BASO % 0.4 % (0.0-1.0); EOS % 0.8 % (0.0-3.0); HEMOGLOBIN 10.9 g/dl (12.0-15.5); LYMPH # 1.6 10^3/uL (1.5-5.0); MEAN CORPUSCULAR HEMOGLOBIN 34.1 pg (27.0-33.0); MEAN CORPUSCULAR VOLUME 103.1 fl (80.0-96.0); MONO # 0.3 10^3/uL (0.0-0.8); MONO % 5.5 % (2.0-8.0); NEUTROPHILS # 3.2 10^3/uL (1.5-8.5); NEUTROPHILS % 61.9 % (36.0-66.0); PLATELET COUNT, AUTOMATED 161 10^3/uL (150-450); WHITE BLOOD COUNT 5.1 10^3/uL (4.0-10.0)
[2022-05-01 14:14] LABS: CHLORIDE LEVEL 106 MMOL/L (98-107); SODIUM LEVEL 141 MMOL/L (136-145)
[2022-05-01 14:15] LABS: ALBUMIN 3.4 G/DL (3.2-5.2); CARBON DIOXIDE LEVEL 28 MMOL/L (20-31)
[2022-05-01 14:19] LABS: BLOOD UREA NITROGEN 13 MG/DL (9-23)
[2022-05-01 14:20] LABS: CALCIUM LEVEL 8.4 MG/DL (8.5-10.1); GLUCOSE, FASTING 86 MG/DL (60-100); LIPASE 29 U/L (12-53)
[2022-05-01 14:21] LABS: ALKALINE PHOSPHATASE 54 U/L (46-116); BILIRUBIN,TOTAL 0.2 MG/DL (0.3-1.2)
[2022-05-01 14:22] LABS: ALT/SGPT 26 U/L (7.0-40); AST/SGOT 23 U/L (<34); GLOMERULAR FILTRATION RATE > 60.0 (>60); IRON (FE) 26 UG/DL (50-170); TOTAL PROTEIN 5.7 G/DL (5.7-8.2)
[2022-05-01 14:27] LABS: POTASSIUM SERUM 4.5 MMOL/L (3.5-5.1)
== END ==
LOC: M PLALAB 10:00
PROVIDERS: ATTEND Physician Assistant Medical
DX: R10.13 Epigastric pain (principal)

== ENCOUNTER 2022-05-04 11:33 | Outpatient (CLI) | payer OTHER ==
[~2022-05-04] VITALS: Ht 157.5 cm; Wt 63.6 kg
[~2022-05-04 11:33] MED LIST changes: +ALBUTEROL SULFATE 2.5 MG/0.5 ML INH NEB SOLN INH PRN; +EPINEPHrine INJ 1 MG/ML 1ML AMP IM PRN; +diphenhydrAMINE 50MG/ML VIAL IV PRN; +methylPREDNISolone 125MG 2ML VIAL IV PRN
[2022-05-04 11:40] VITALS: BP 105/54
[2022-05-04] MEDS ORDERED: NS 1,000 ML IV SCH (12:00)
[2022-05-04] MEDS ORDERED: IRON SUCROSE 500 MG in NS 250 ML IV ONE (13:00)
[2022-05-04 14:15] VITALS: BP 111/56
[2022-05-04 15:50] VITALS: BP 100/57
== END 2022-05-04 15:50 | disposition home or self-care (01) ==
LOC: M INFU 11:33
PROVIDERS: ATTEND Physician Assistant Medical
DX: D50.9 Iron deficiency anemia, unspecified (principal); Z88.0 Allergy status to penicillin; Z88.2 Allergy status to sulfonamides; Z88.8 Allergy status to other drugs, medicaments and biological substances
CPT/HCPCS: 96365; 96366; J1200; J1756

== ENCOUNTER → 2022-05-04 | Outpatient (CLI) | payer OTHER | LOC: M PLAIMG 08:47 | PROVIDERS: ATTEND Physician Assistant Medical | DX: R10.13 Epigastric pain (principal); M47.9 Spondylosis, unspecified; Z97.5 Presence of (intrauterine) contraceptive device; K76.89 Other specified diseases of liver ==

== ENCOUNTER 2022-05-17 09:00 | Outpatient (CLI) | payer OTHER ==
[~2022-05-17] VITALS: Ht 157.5 cm; Wt 68.6 kg
[2022-05-17 09:00] VITALS: BP 107/57
[~2022-05-17 09:00] MED LIST changes: +IRON SUCROSE 25 MG in NS 23.75 ML IV ONE; +IRON SUCROSE 250 MG in NS 237.5 ML IV ONE; +NS 1,000 ML IV SCH
[2022-05-17 10:30] VITALS: BP 93/51
[2022-05-17 11:45] VITALS: BP 97/54
== END 2022-05-17 11:45 | disposition home or self-care (01) ==
LOC: M INFU 09:00
PROVIDERS: ATTEND Physician Assistant Medical
DX: D50.9 Iron deficiency anemia, unspecified (principal); Z88.0 Allergy status to penicillin; Z88.2 Allergy status to sulfonamides; Z88.8 Allergy status to other drugs, medicaments and biological substances
CPT/HCPCS: 96365; 96366; J1756

== ENCOUNTER → 2022-09-27 | Outpatient (CLI) | payer OTHER ==
[~2022-09-27] MED LIST changes: -ALBUTEROL SULFATE 2.5 MG/0.5 ML INH NEB SOLN INH PRN; -EPINEPHrine INJ 1 MG/ML 1ML AMP IM PRN; +FLUT50SP17; -FLUTISP; -IRON SUCROSE 25 MG in NS 23.75 ML IV ONE; -IRON SUCROSE 250 MG in NS 237.5 ML IV ONE; -NS 1,000 ML IV SCH; -diphenhydrAMINE 50MG/ML VIAL IV PRN; -methylPREDNISolone 125MG 2ML VIAL IV PRN
[2022-09-27 17:43] LABS: BASO % 0.6 % (0.0-1.0); EOS # 0.1 10^3/uL (0.0-0.5); HEMATOCRIT 36.4 % (36.0-47.0); HEMOGLOBIN 12.2 g/dl (12.0-15.5); LYMPH # 1.8 10^3/uL (1.5-5.0); LYMPH % 36.5 % (24.0-44.0); MEAN CORPUSCULAR HEMOGLOBIN 34.3 pg (27.0-33.0); MEAN CORPUSCULAR HGB CONC 33.5 g/dl (32.0-36.5); MEAN CORPUSCULAR VOLUME 102.2 fl (80.0-96.0); MONO # 0.3 10^3/uL (0.0-0.8); MONO % 5.6 % (2.0-8.0); NEUTROPHILS # 2.7 10^3/uL (1.5-8.5); NEUTROPHILS % 55.5 % (36.0-66.0); PLATELET COUNT, AUTOMATED 181 10^3/uL (150-450); RED BLOOD COUNT 3.56 10^6/uL (4.00-5.40); WHITE BLOOD COUNT 4.9 10^3/uL (4.0-10.0)
[2022-09-27 17:59] LABS: HEMOGLOBIN A1c 4.4 % (4.0-6.0)
[2022-09-27 18:19] LABS: IRON (FE) 77 UG/DL (50-170)
[2022-09-27 18:20] LABS: ALBUMIN 3.5 G/DL (3.2-5.2); ALKALINE PHOSPHATASE 59 U/L (46-116); ALT/SGPT 21 U/L (7.0-40); AST/SGOT 17 U/L (<34); BILIRUBIN,TOTAL 0.2 MG/DL (0.3-1.2); BLOOD UREA NITROGEN 12 MG/DL (9-23); CALCIUM LEVEL 8.6 MG/DL (8.5-10.1); CARBON DIOXIDE LEVEL 27 MMOL/L (20-31); CHLORIDE LEVEL 106 MMOL/L (98-107); CHOLESTEROL LEVEL 171 MG/DL (<200); CHOLESTEROL RISK RATIO 2.26 (<5); CREATININE FOR GFR 0.66 MG/DL (0.55-1.30); GLOMERULAR FILTRATION RATE > 60.0 (>60); GLUCOSE, FASTING 80 MG/DL (60-100); HDL CHOLESTEROL 75.6 MG/DL (>40); LDL CHOLESTEROL 84.6 MG/DL (<100); NON-HDL-C 95.4 MG/DL; POTASSIUM SERUM 4.1 MMOL/L (3.5-5.1); SODIUM LEVEL 140 MMOL/L (136-145); TOTAL PROTEIN 6.2 G/DL (5.7-8.2); TRIGLYCERIDES LEVEL 54 MG/DL (<150)
[2022-09-27 18:21] LABS: FERRITIN 48.5 NG/ML (7.3-270.7); FREE T4 0.98 NG/DL (0.89-1.76); THYROID STIMULATING HORMONE 1.249 uIU/ML (0.55-4.78); TOTAL 25(OH) VITAMIN D 27.9 NG/ML (20.0-100.0)
[2022-09-27 18:22] LABS: VITAMIN B12 LEVEL 371 PG/ML (211-911)
== END ==
LOC: M PLALAB 14:39
PROVIDERS: ATTEND Physician Assistant Medical
DX: F32.9 Major depressive disorder, single episode, unspecified (principal); J30.9 Allergic rhinitis, unspecified; Z98.890 Other specified postprocedural states

== ENCOUNTER → 2022-10-26 | Outpatient (REF) | payer OTHER | LOC: M SFHCPLAZ 10:22 | PROVIDERS: ATTEND Physician Assistant Medical | DX: R53.83 Other fatigue (principal); E16.2 Hypoglycemia, unspecified; Z53.8 Procedure and treatment not carried out for other reasons ==

== ENCOUNTER → 2022-11-14 | Outpatient (CLI) | payer OTHER ==
[2022-11-14 15:50] LABS: BASO % 0.6 % (0.0-1.0); EOS % 0.2 % (0.0-3.0); HEMATOCRIT 39.7 % (36.0-47.0); HEMOGLOBIN 13.3 g/dl (12.0-15.5); LYMPH # 1.8 10^3/uL (1.5-5.0); LYMPH % 37.3 % (24.0-44.0); MEAN CORPUSCULAR HGB CONC 33.5 g/dl (32.0-36.5); MEAN CORPUSCULAR VOLUME 101.5 fl (80.0-96.0); MONO # 0.4 10^3/uL (0.0-0.8); MONO % 7.8 % (2.0-8.0); NEUTROPHILS # 2.6 10^3/uL (1.5-8.5); NEUTROPHILS % 53.7 % (36.0-66.0); PLATELET COUNT, AUTOMATED 173 10^3/uL (150-450); RED BLOOD COUNT 3.91 10^6/uL (4.00-5.40); WHITE BLOOD COUNT 4.8 10^3/uL (4.0-10.0)
[2022-11-14 15:59] LABS: FERRITIN 45.4 NG/ML (7.3-270.7)
[2022-11-14 16:00] LABS: TOTAL 25(OH) VITAMIN D 23.9 NG/ML (20.0-100.0)
[2022-11-14 16:09] LABS: HEMOGLOBIN A1c 4.4 % (4.0-6.0)
== END ==
LOC: M PLALAB 13:40
PROVIDERS: ATTEND Physician Assistant Medical
DX: R53.83 Other fatigue (principal); E16.2 Hypoglycemia, unspecified

== ENCOUNTER 2022-12-11 20:29 | Inpatient (IN) | payer OTHER ==
[~2022-12-11] VITALS: Ht 157.5 cm; Wt 67.0 kg
[2022-12-11 22:16] LABS: HEMATOCRIT 38.8 % (36.0-47.0); HEMOGLOBIN 13.5 g/dl (12.0-15.5); MEAN CORPUSCULAR HGB CONC 34.8 g/dl (32.0-36.5); MEAN CORPUSCULAR VOLUME 100.5 fl (80.0-96.0); PLATELET COUNT, AUTOMATED 170 10^3/uL (150-450); RED BLOOD COUNT 3.86 10^6/uL (4.00-5.40); WHITE BLOOD COUNT 5.7 10^3/uL (4.0-10.0)
[2022-12-11 22:33] LABS: AMPHETAMINES LEVEL URINE NEGATIVE (NEGATIVE); BARBITURATES URINE NEGATIVE (NEGATIVE); BENZODIAZEPINES URINE NEGATIVE (NEGATIVE); CANNABINOIDS URINE NEGATIVE (NEGATIVE); COCAINE METABOLITE URINE NEGATIVE (NEGATIVE); METHADONE URINE NEGATIVE (NEGATIVE); OPIATES URINE NEGATIVE (NEGATIVE); PHENCYCLIDINE URINE NEGATIVE (NEGATIVE)
[2022-12-11 22:36] LABS: ACETAMINOPHEN LEVEL < 2.0 UG/ML (10.0-20.0); HCG, SERUM QUALITATIVE NEGATIVE (NEGATIVE)
[2022-12-11 22:37] LABS: SALICYLATE LEVEL < 3.0 MG/DL (<30)
[2022-12-11 22:39] LABS: THYROID STIMULATING HORMONE 1.305 uIU/ML (0.55-4.78)
[2022-12-11 22:55] LABS: ALBUMIN 3.8 G/DL (3.2-5.2); ALKALINE PHOSPHATASE 82 U/L (46-116); ALT/SGPT 28 U/L (7.0-40); AST/SGOT 15 U/L (<34); BILIRUBIN,DIRECT 0.1 MG/DL (<0.4); BILIRUBIN,TOTAL 0.3 MG/DL (0.3-1.2); BLOOD UREA NITROGEN < 5 MG/DL (9-23); CALCIUM LEVEL 8.4 MG/DL (8.5-10.1); CARBON DIOXIDE LEVEL 27 MMOL/L (20-31); CHLORIDE LEVEL 106 MMOL/L (98-107); CREATININE FOR GFR 0.57 MG/DL (0.55-1.30); ETHYL ALCOHOL (ETHANOL) 0.351 % (0.000-0.010); GLOMERULAR FILTRATION RATE > 60.0 (>60); GLUCOSE, FASTING 86 MG/DL (60-100); POTASSIUM SERUM 3.6 MMOL/L (3.5-5.1); SODIUM LEVEL 141 MMOL/L (136-145); TOTAL PROTEIN 6.6 G/DL (5.7-8.2)
[2022-12-11] MEDS ORDERED: FLUO40CA PO (23:29)
[2022-12-11] MEDS ORDERED: OMEP40CA5 PO (23:29)
[2022-12-11] MEDS ORDERED: GABA-282 PO (23:29)
[2022-12-11] MEDS ORDERED: CLON-412 PO (23:29)
[2022-12-11] MEDS ORDERED: HOME MED LIST COMPLETE! XX SCH (23:30)
[2022-12-12] MEDS ORDERED: lamoTRIgine 100MG TAB PO SCH (09:00)
[2022-12-12] MEDS: THIAMINE 100 MG TAB PO SCH ×2 (09:00→22:29)
[2022-12-12] MEDS ORDERED: buPROPion **SR TABLET** (ZYBAN) 150MG PO SCH (09:00)
[2022-12-12] MEDS ORDERED: FLUoxetine 20MG CAP PO SCH (09:00)
[2022-12-12] MEDS ORDERED: GABAPENTIN 300 MG CAP PO SCH (09:00)
[2022-12-12] MEDS ORDERED: OMEPRAZOLE 20MG CAP PO ONE (09:00)
[2022-12-12] MEDS: OMEPRAZOLE 20MG CAP PO SCH ×2 (09:00→22:29)
[2022-12-12] MEDS ORDERED: OXAZEPAM 15MG CAP PO ONE (10:20)
[2022-12-12] MEDS ORDERED: MED REC COMMENT (10:28)
[2022-12-12] MEDS ORDERED: IBUPROFEN 400MG TAB PO PRN (12:40)
[2022-12-12] MEDS ORDERED: MOM 30ML SUSPENSION UDC PO PRN (12:40)
[2022-12-12] MEDS ORDERED: diphenhydrAMINE 25MG CAP PO PRN (12:40)
[2022-12-12] MEDS ORDERED: MAALOX 30 ML SUSP *UDC PO PRN (12:40)
[2022-12-12] MEDS ORDERED: traZODone 50 MG TAB PO PRN (12:40)
[2022-12-12] MEDS ORDERED: LORazepam 2 MG TAB PO PRN (12:40)
[2022-12-12 15:05] VITALS: BP 120/76; TEMP 97.1; O2SAT 100
[2022-12-12] MEDS: FOLIC ACID 1MG TAB PO SCH (18:16)
[2022-12-12] MEDS: NICOTINE 14 MG/24 HR TRANSDERMAL TD SCH (18:16)
[2022-12-12] MEDS: MULTIVITAMINS/MINERALS THERAP 1 TAB PO SCH (18:16)
[2022-12-12] MEDS: ACETAMINOPHEN TAB 650MG DOSE (2X325MG) PO PRN (18:18)
[2022-12-12] MEDS ORDERED: cloNIDine 0.1MG TABLET PO SCH (21:00)
[2022-12-13 06:39] VITALS: BP 130/80; TEMP 97.9; O2SAT 98
[2022-12-13] MEDS: SUCRALFATE 1 GM TAB PO SCH ×2 (08:00→18:11)
[2022-12-13] MEDS ORDERED: ONDANSETRON 4MG ORAL DISINTEGRATING TAB PO PRN (09:55)
[2022-12-13] MEDS: FOLIC ACID 1MG TAB PO SCH (10:10)
[2022-12-13] MEDS: MULTIVITAMINS/MINERALS THERAP 1 TAB PO SCH (10:11)
[2022-12-13] MEDS: THIAMINE 100 MG TAB PO SCH ×2 (10:11→21:34)
[2022-12-13] MEDS: OMEPRAZOLE 20MG CAP PO SCH ×2 (10:11→21:33)
[2022-12-13] MEDS: NICOTINE 14 MG/24 HR TRANSDERMAL TD SCH (10:12)
[2022-12-13] MEDS: ACETAMINOPHEN TAB 650MG DOSE (2X325MG) PO PRN (13:07)
[2022-12-13 18:19] VITALS: BP 101/64; TEMP 96.5
[2022-12-13 19:20] VITALS: BP 101/64
[2022-12-13] MEDS ORDERED: cloNIDine 0.1MG TABLET PO SCH (21:00)
[2022-12-13] MEDS: GABAPENTIN 100 MG CAP PO SCH (21:34)
[2022-12-13 21:41] VITALS: BP 134/82
[2022-12-14 06:00] VITALS: BP 106/59
[2022-12-14 06:50] VITALS: BP 106/59; TEMP 97.7; O2SAT 99
[2022-12-14] MEDS ORDERED: lamoTRIgine 25MG TAB PO SCH (09:00)
[2022-12-14] MEDS: NICOTINE 14 MG/24 HR TRANSDERMAL TD SCH (09:00)
[2022-12-14] MEDS ORDERED: FLUoxetine 20MG CAP PO SCH (09:00)
[2022-12-14] MEDS ORDERED: LAMI25TA PO (09:11)
[2022-12-14] MEDS ORDERED: FLUO40CA PO (09:11)
[2022-12-14] MEDS ORDERED: CLONI1TA PO (09:11)
[2022-12-14] MEDS ORDERED: GABA-1171 PO (09:11)
[2022-12-14] MEDS ORDERED: BUPR-71 PO (09:12)
[2022-12-14] MEDS: OMEPRAZOLE 20MG CAP PO SCH (09:13)
[2022-12-14] MEDS: THIAMINE 100 MG TAB PO SCH (09:13)
[2022-12-14] MEDS: GABAPENTIN 100 MG CAP PO SCH (09:14)
[2022-12-14] MEDS: SUCRALFATE 1 GM TAB PO SCH (09:14)
[2022-12-14] MEDS: MULTIVITAMINS/MINERALS THERAP 1 TAB PO SCH (09:14)
[2022-12-14] MEDS: FOLIC ACID 1MG TAB PO SCH (09:15)
[2022-12-14] MEDS ORDERED: NALT50TA4 PO (09:25)
== END 2022-12-14 12:30 | disposition home or self-care (01) | DRG 751 ==
LOC: M ED 20:29 → M ED INP 12-12 12:39 → M PSY 12-12 15:27
PROVIDERS: ADMIT Student in an Organized Health Care Education/Training Program; ATTEND Student in an Organized Health Care Education/Training Program
DX: F33.1 Major depressive disorder, recurrent, moderate (principal); F43.10 Post-traumatic stress disorder, unspecified; R45.851 Suicidal ideations; Z62.810 Personal history of physical and sexual abuse in childhood; Z20.822 Contact with and (suspected) exposure to COVID-19; F17.290 Nicotine dependence, other tobacco product, uncomplicated; F10.10 Alcohol abuse, uncomplicated; F41.9 Anxiety disorder, unspecified; D63.8 Anemia in other chronic diseases classified elsewhere; J45.909 Unspecified asthma, uncomplicated; Z79.899 Other long term (current) drug therapy; Z88.0 Allergy status to penicillin; Z88.2 Allergy status to sulfonamides; Z88.8 Allergy status to other drugs, medicaments and biological substances; Z91.040 Latex allergy status; Z98.84 Bariatric surgery status

== ENCOUNTER → 2023-03-06 | Outpatient (CLI) | payer OTHER ==
[~2023-03-06] MED LIST changes: +CLON-412 PO; +CLONI1TA PO; +FLUO40CA PO; +GABA-1171 PO; +GABA-282 PO; +LAMI25TA PO; +MED REC COMMENT; +NALT50TA4 PO
== END ==
LOC: M PLAIMG 13:09
PROVIDERS: ATTEND Physician Assistant Medical
DX: M54.50 Low back pain, unspecified (principal); M47.816 Spondylosis without myelopathy or radiculopathy, lumbar region

== ENCOUNTER 2023-04-09 22:47 | Emergency (ER) | payer OTHER ==
[2023-04-10] MEDS ORDERED: GABA-282 PO (00:01)
[2023-04-10] MEDS ORDERED: ALBU8.5H INH (00:01)
[2023-04-10] MEDS ORDERED: HOME MED LIST COMPLETE! XX SCH (00:05)
[2023-04-10 01:05] LABS: HEMATOCRIT 40.5 % (36.0-47.0); HEMOGLOBIN 13.6 g/dl (12.0-15.5); MEAN CORPUSCULAR HEMOGLOBIN 34.7 pg (27.0-33.0); MEAN CORPUSCULAR HGB CONC 33.6 g/dl (32.0-36.5); MEAN CORPUSCULAR VOLUME 103.3 fl (80.0-96.0); PLATELET COUNT, AUTOMATED 255 10^3/uL (150-450); RED BLOOD COUNT 3.92 10^6/uL (4.00-5.40); WHITE BLOOD COUNT 6.7 10^3/uL (4.0-10.0)
[2023-04-10 01:09] LABS: AMPHETAMINES LEVEL URINE NEGATIVE (NEGATIVE); BARBITURATES URINE NEGATIVE (NEGATIVE); BENZODIAZEPINES URINE NEGATIVE (NEGATIVE); CANNABINOIDS URINE NEGATIVE (NEGATIVE); COCAINE METABOLITE URINE NEGATIVE (NEGATIVE); METHADONE URINE NEGATIVE (NEGATIVE); OPIATES URINE NEGATIVE (NEGATIVE); PHENCYCLIDINE URINE NEGATIVE (NEGATIVE)
[2023-04-10 01:14] LABS: ALKALINE PHOSPHATASE 73 U/L (46-116); ALT/SGPT 30 U/L (7.0-40); AST/SGOT 23 U/L (<34); BILIRUBIN,DIRECT < 0.1 MG/DL (<0.4); BILIRUBIN,TOTAL 0.3 MG/DL (0.3-1.2); BLOOD UREA NITROGEN 9 MG/DL (9-23); CALCIUM LEVEL 8.7 MG/DL (8.5-10.1); CARBON DIOXIDE LEVEL 27 MMOL/L (20-31); CHLORIDE LEVEL 110 MMOL/L (98-107); CREATININE FOR GFR 0.64 MG/DL (0.55-1.30); GLOMERULAR FILTRATION RATE > 60.0 (>60); GLUCOSE, FASTING 83 MG/DL (60-100); POTASSIUM SERUM 4.5 MMOL/L (3.5-5.1); SALICYLATE LEVEL < 3.0 MG/DL (<30); SODIUM LEVEL 147 MMOL/L (136-145); TOTAL PROTEIN 7.3 G/DL (5.7-8.2)
[2023-04-10 01:15] LABS: THYROID STIMULATING HORMONE 2.821 uIU/ML (0.55-4.78)
[2023-04-10] MEDS ORDERED: LORazepam 2 MG TAB PO ONE (01:20)
[2023-04-10] MEDS ORDERED: LORazepam 1 MG TAB PO ONE (01:25)
[2023-04-10 01:35] LABS: ETHYL ALCOHOL (ETHANOL) 0.326 % (0.000-0.010)
[2023-04-10 08:36] LABS: HCG, SERUM QUALITATIVE NEGATIVE (NEGATIVE)
[2023-04-10 10:26] VITALS: BP 129/74; TEMP 98; O2SAT 100
== END 2023-04-10 14:05 | disposition home or self-care (01) ==
LOC: M ED 22:47
DX: F10.129 Alcohol abuse with intoxication, unspecified (principal); F32.A Depression, unspecified; F17.200 Nicotine dependence, unspecified, uncomplicated; Z88.0 Allergy status to penicillin; Z88.2 Allergy status to sulfonamides; Z91.040 Latex allergy status; Z79.52 Long term (current) use of systemic steroids; Z79.891 Long term (current) use of opiate analgesic